=== PATIENT | female | born 1940 | race Caucasian/White ===

== ENCOUNTER → 2023-12-21 08:58 | Outpatient (REF) | payer MEDICARE, OTHER, SELFPAY ==
[2023-12-21 13:06] LABS: ALT (SGPT) 24 U/L (0-35); AST (SGOT) 32 U/L (14-36); Albumin 3.8 g/dl (3.5-5.0); Alkaline Phosphatase 90 U/L (38-126); Blood Urea Nitrogen 21 mg/dl (7-17); Calcium 9.6 mg/dl (8.4-10.2); Carbon Dioxide 29 mmol/L (22-30); Chloride 102 mmol/L (98-107); Glucose 97 mg/dl (70-99); HDL Cholesterol 55 mg/dl; LDL Cholesterol, Calculated 66 mg/dl; Potassium 4.5 mmol/L (3.5-5.1); Sodium 133 mmol/L (135-145); Total Bilirubin 0.7 mg/dl (0.2-1.3); Total Cholesterol 137 mg/dl (50-199); Total Protein 6.5 g/dl (6.3-8.2); Triglyceride 84 mg/dl (10-149); Very Low Density Lipoprotein 16 mg/dl (0-30); eGFR > 60.00
== END ==
LOC: HWLAB 08:58
PROVIDERS: ATTENDING PHYSICIAN Internal Medicine Interventional Cardiology; FAMILY PHYSICIAN Family Medicine
DX: E78.00 Pure hypercholesterolemia, unspecified (principal)
CPT/HCPCS: 36415; 80053; 80061

== ENCOUNTER 2024-05-18 17:02 | Inpatient (IN) | payer MEDICARE, OTHER, SELFPAY ==
[2024-05-18 12:19] VITALS: BP 140/73
--- NOTE | 2024-05-18 13:50 | ED.GENMED ---
History of Present Illness
General
Chief Complaint: Fall
Source: patient
Exam Limitations: none
Time Seen by Provider: 05/18/24 13:41
History of Present Illness
History of Present Illness:
See MDM
Past History
Past History
ED Past Medical History: Asthma
ED Past Surgical History: Orthopedic and Other
Social History
Tobacco: Non-smoker
Alcohol: None
Personal:
Phy Exam
Physical Exam
Physical Exam:
See MDM
Course
Orders/Labs/Results
Orders:
Orders
05/18/24 13:28
CR Chest - 2 Views Urgent
Comment:
Reason For Exam: Cough
CR Hip - RT w/wo Pel 2-3 Vw* Urgent
Comment:
Reason For Exam: fall
Include a pelvis x-ray?: Yes
Femur, Right 2 View [CR Femur - Right Min 2 Vw] Urgent
Comment:
Reason For Exam: fall
05/18/24 13:49
Electrocardiogram (*1) Urgent
Reason for Study: Shortness of Breath
CT Head W/o Iv Contrast Urgent
Comment:
Reason For Exam: fall, R side head injury
EKG- Treatment ONCE
05/18/24 13:55
BNP [NT-proBNP] Urgent
Complete Blood Count/With Diff Urgent
Comprehensive Metabolic Panel Urgent
Troponin I Urgent
05/18/24 15:08
Urinalysis Reflex To Culture Urgent
Date Specimen was Collected: 05/18/24
Time Specimen was Collected: 14:56
05/18/24 15:19
Diltiazem 125 mg/125 ml Nss [Cardizem] 125 mg in 125 ml IV NOW
Initial dose in mg/hr, then titrate:: 5
Titrate to keep:: Heart rate 80-100 bpm
Titrate by mg/hr:: 5 mg/hr
Frequency of titrations (minutes):: 15
Maximum dose in mg/hr:: 15
05/18/24 15:41
[address] Pelvis W/o Iv Contrast Urgent
Comment:
Reason For Exam: R hip pain, possible pelvic fracture
Abnormal Lab Results
05/18/24
13:55
RBC 3.67 L 10^6/uL
(4.20-5.40)
Hgb 11.9 L g/dL
(12.0-16.0)
Hct 33.5 L %
(37.0-47.0)
MCH 32.4 H pg
(27.0-31.0)
MPV 10.8 H fL
(7.4-10.4)
Absolute Lymphs (auto) 0.8 L 10^3/uL
(1.2-3.4)
Neutrophils % 78.7 H %
(42.2-75.2)
Lymphocytes % 11.7 L %
(20.5-51.1)
Sodium 126 L mmol/L
(135-145)
Chloride 91 L mmol/L
(98-107)
Glucose 116 H mg/dl
(70-99)
AST 58 H U/L
(14-36)
05/18/24 13:55
05/18/24 13:55
Vital Signs
Initial and Last Documented VS:
Initial Vital Signs
Temp Pulse Resp BP
99.2 F 89 18 140/73
05/18/24 12:19 05/18/24 12:19 05/18/24 12:19 05/18/24 12:19
Last Documented Vital Signs
Temp Pulse Resp BP Pulse Ox
99.2 F 81 18 140/73 87
05/18/24 12:19 05/18/24 15:00 05/18/24 15:00 05/18/24 12:19 05/18/24 15:00
MDM/Problems Addressed
Differential Diagnosis Includes:
HPI and MDM Narrative:
83-year-old female presenting with generalized weakness, headache, cough and right hip pain. Over the past 3 weeks, patient has been dealing with COVID and a worsening cough. She has been weaker and more bedbound and is becoming deconditioned.
She fell yesterday in the garage and hit the right side of her head and her right hip. Since then, she has been having trouble ambulating due to the pain.
On exam, patient does have rhonchorous breath sounds. There is no obvious trauma on scalp evaluation but will obtain CT given age. Will obtain chest x-ray and hip x-ray and basic blood work.
I did question her edematous legs. Patient states she was recently taken off of her water pills so she could be treated with COVID
Physical exam
General: Weak and fatigued
HEENT: protecting airway
Neck: Nontender and supple
CV: No evidence of cyanosis. Regular rate and rhythm
Resp: No accessory muscle use. Rhonchorous breath sounds throughout
Abd: Non-distended
Extremities: Tenderness to right hip. Distal extremity neurovascular intact. +2 pitting edema bilateral lower extremities
Neuro: alert
Psych: Normal affect
Skin: Intact
Problems Addressed including Acute and Chronic Conditions affecting care:
1. Head injury
Acuity: acute
Prognosis: stable
Details: Given age, will obtain CT head
2. Shortness of breath and cough
Acuity: acute
Prognosis: stable
Details: Likely in the setting of ongoing COVID but will obtain x-ray to rule out pneumonia versus pulmonary edema
3. Hip injury
Acuity: acute
Prognosis: stable
Details: Will obtain x-ray to rule out fracture
Updates
X-ray concerning for possible femoral neck fracture. CT was performed confirming femoral neck fracture. CT head negative. Chest x-ray shows atelectasis and no evidence of pneumonia. Patient found to be mildly hyponatremic
Orthopedics aware and plan for possible OR tomorrow if sodium can be improved
Differential Diagnosis (but not limited to): Intracranial hemorrhage, deconditioning, pneumonia, COVID, hip fracture, pulmonary edema
Testing considered: D-dimer
Drug therapy (if applicable): OTC meds, please see d/c instruction regarding Rx drugs
Amount and/or Complexity of Data Reviewed
Clinical info obtained from: Patient
External data reviewed: N/A
Labs I independently reviewed (but not limited to): Hyponatremia
Radiology: The CT scan was personally and independently reviewed. In addition, official CT report reviewed.
X-ray independently reviewed: Possible femoral neck fracture
Pulse Ox: not hypoxic
EKG independently reviewed: normal sinus rhythm, normal axis, no STEMI
Bridge Teacher: Sinus rhythm
Critical Care: N/A
Risk of Complication:
Social Determinants of health: Good social support
Discussed with other providers: Orthopedics, hospitalist
Escalation of Care includes Admit/Obs: Given the generalized weakness and hip fracture, will admit
Occasional wrong word or 'sound a like' substitutions may have occurred due to the inherent limitations of voice recognition software. Read the chart carefully and recognize, using context, where substitutions have occurred.
*Critical Care Note
Total Time (30-74mins, 75-104mins- exclusive of procedures): Not Applicable
ED Attending Note
-
Portions of this chart may have been created with voice recognition software.� Occasional wrong word or��sound alike� substitutions may have occurred due to the inherent limitations of voice recognition software.
Discharge Plan
Departure
Patient Disposition: Admit
Date of Disposition: 05/18/24
Time of Disposition: 16:11
Admit to: Telemetry
Presentation/result/management discussed w/ accepting MD/DO: Hospitalist
Discharge Problem:
Closed fracture of right hip, Acute hyponatremia
Prescriptions:
No Action
celecoxib 200 MG capsule
200 mg PO DAILY@0500 Qty: 30 0RF
latanoprost 1 DROP drops
1 drp ophthalmic (eye) QPM Qty: 1 0RF
Rx Instructions:
each eye
acetaminophen 325 MG tablet
650 mg PO Q4HWA PRN (Reason: mild pain) Qty: 100 0RF
trazodone 50 MG tablet
50 mg PO HS PRN (Reason: sleep) Qty: 60 0RF
Rx Instructions:
1 tablet at night for sleep. Can take 1 additional tablet before midnight if needed.
aspirin 325 MG tablet
325 mg PO DAILY Qty: 18 0RF
ketotifen fumarate [Zaditor] 1 DROP drops
0 drp ophthalmic (eye) DAILYPRN PRN (Reason: SEASONAL ALLERGIES) 0RF
pantoprazole 40 MG tablet,delayed release (DR/EC)
40 mg PO HS Qty: 30 0RF
aspirin 81 MG tablet,chewable
81 mg PO DAILY 0RF
Rx Instructions:
After finishing the 325 mg tablets.
rosuvastatin 5 MG tablet
5 mg PO MOWEFR@2000 Qty: 30 0RF
calcium carbonate-vitamin D3 [Oyster Shell Calcium-Vit D3] 500 MG tablet
500 mg PO DAILY Qty: 30 0RF
budesonide-formoterol [Symbicort] 1 PUFF HFA aerosol inhaler
1 puff inhalation R BID Qty: 1 0RF
multivitamin with folic acid [Tab-A-Adri] 1 TABLET tablet
1 tab PO DAILY Qty: 30 0RF
Referrals:
Ascencion Terrazas MD [Family Provider] -
Interventions
Interventions:
*General Assessment Last Done: 05/18/24 12:19
*ED COVID-19 Vaccine History Last Done: 05/18/24 12:19
ED-Musculoskeletal Assessment Last Done: 05/18/24 13:29
ED- Neurological Assessment Last Done: 05/18/24 13:29
ED-Skin Assessment Last Done: 05/18/24 13:29
Discharge Date and Time
Print Language: CITIZEN OF [place]
[2024-05-18 14:10] LABS: % Basophils 0.6 % (0-2); % Eosinophils 0.6 % (0-6); % Immature Granulocytes 0.2 % (0-0.5); % Lymphocytes 11.7 % (20.5-51.1); % Monocytes 8.2 % (1.7-9.3); % Neutrophils 78.7 % (42.2-75.2); Absolute Lymphocytes 0.8 10^3/uL (1.2-3.4); Absolute Monocytes 0.5 10^3/uL (0.1-0.6); Absolute Neutrophils 5.1 10^3/uL (1.4-6.5); Hematocrit 33.5 % (37.0-47.0); Hemoglobin 11.9 g/dL (12.0-16.0); Mean Corp Hgb Conc. 35.5 g/dL (33.0-37.0); Mean Corpuscular Hgb 32.4 pg (27.0-31.0); Mean Corpuscular Volume 91.3 fL (81.0-99.0); Mean Platelet Volume 10.8 fL (7.4-10.4); Nucleated Red Blood Cells % 0 %; Platelet Count 287 10^3/uL (130-400); Red Blood Cell Count 3.67 10^6/uL (4.20-5.40); Red Cell Dist. Width 12.7 % (11.5-14.5); White Blood Cell Count 6.5 10^3/uL (4.8-10.8)
[2024-05-18 14:22] LABS: ALT (SGPT) 30 U/L (0-35); AST (SGOT) 58 U/L (14-36); Albumin 3.8 g/dl (3.5-5.0); Alkaline Phosphatase 80 U/L (38-126); Blood Urea Nitrogen 12 mg/dl (7-17); Carbon Dioxide 28 mmol/L (22-30); Chloride 91 mmol/L (98-107); Glucose 116 mg/dl (70-99); Potassium 3.7 mmol/L (3.5-5.1); Sodium 126 mmol/L (135-145); Total Bilirubin 0.9 mg/dl (0.2-1.3); Total Protein 6.6 g/dl (6.3-8.2); eGFR > 60.00
[2024-05-18 14:33] LABS: NT-proBNP 814 pg/ml; Troponin I 0.024 ng/ml
[2024-05-18 15:24] LABS: Urine Albumin Negative (Neg - Trace); Urine Bilirubin Negative (Negative); Urine Character Clear (Clear); Urine Color Yellow; Urine Glucose Negative (Negative); Urine Ketone Negative (Negative); Urine Leukocyte Negative (Negative); Urine Nitrite Negative (Negative); Urine Occult Blood Negative (Negative); Urine Urobilinogen Negative (Neg - 1+)
--- NOTE | 2024-05-18 16:27 | HPS.HSE ---
Family Physician
-
Family Physician: Ascencion Terrazas
Chief Complaint
-
Right hip pain
History of Present Illness
83 years old female presented after a fall at home. She did not have head injury. She was able to ambulate but with discomfort in right hip. She was brought into the emergency room and imaging studies showed right femoral neck fracture. Patient
did not have loss of consciousness.
Patient reported history of decreased oral intake and weakness following recent episode of COVID infection. She takes hydrochlorothiazide daily. She was found to have sodium 126 upon admission.
Medical History
Past Medical History
Past Medical History: Reports Other (Hypertension, glucoma, spinal stenosis, hyperlipidemia, osteoarthritis, mitral valve prolapse, GERD, venous insufficiency, urinary incontinence, asthma.)
Past Surgical History: Reports Other (No recent major surgery)
Social History
Tobacco: Non-smoker
Alcohol: None
Drug: None
Personal:
Living: With Family
Employment: Retired
Family History
Family History: CAD, Diabetes and Hypertension
Allergies / Home Medications
Allergies reflects when Allergies were last updated in [employer].
Home Medications with original date entered in [employer]
Allergy/Medication List:
Allergies
Allergy/AdvReac Type Severity Reaction Status Date / Time
Penicillins Allergy Unknown Verified 05/18/24 12:23
Home Medications
acetaminophen 325 mg tablet 650 mg (2 x 325 mg) PO Q4HWA PRN mild pain #100 tabs 03/12/20
aspirin 325 mg tablet 325 mg PO DAILY #18 tabs 03/12/20
aspirin 81 mg chewable tablet 81 mg PO DAILY 03/12/20
budesonide-formoterol HFA 160 mcg-4.5 mcg/actuation aerosol inhaler (Symbicort) 1 puff inhalation R BID ##1 03/12/20
calcium carbonate 500 mg-vitamin D3 5 mcg (200 unit) tablet (Oyster Shell Calcium-Vitamin D3) 500 mg PO DAILY #30 tabs 03/12/20
celecoxib 200 mg capsule 200 mg PO DAILY@0500 #30 caps 03/12/20
ketotifen fumarate 0.025 % (0.035 %) eye drops (Zaditor) 0 drp ophthalmic (eye) DAILYPRN PRN SEASONAL ALLERGIES 03/12/20
latanoprost 0.005 % eye drops 1 drp ophthalmic (eye) QPM ##1 03/12/20
multivitamin with folic acid 400 mcg tablet (Tab-A-Adri) 1 tab PO DAILY #30 tabs 03/12/20
pantoprazole 40 mg tablet,delayed release 40 mg PO HS #30 tabs 03/12/20
rosuvastatin 5 mg tablet 5 mg PO MOWEFR@2000 #30 tabs 03/12/20
trazodone 50 mg tablet 50 mg PO HS PRN sleep #60 tabs 03/12/20
Review of Systems
-
History Source: Patient
A 12 point ROS was completed and negative except as noted: Yes
Constitutional: Denies Fever or Chills
EENT: Denies Sore Throat or Runny Nose
Respiratory: Reports Cough
Cardiac: Denies Chest Pain
Abdomen/GI: Denies Abdominal Pain
: Reports Incontinence
Musculoskeletal: Reports Joint Pain (Right hip)
Skin: Denies Rash
Neurological: Denies Numbness
Hematologic/Lymphatic: Denies Bruising
Psych: Denies Panic Disorder
Physical Exam
Vital Signs
Vital Signs
Temp Pulse Resp BP Pulse Ox
98.2 F 83 17 140/73 95
05/18/24 16:13 05/18/24 16:00 05/18/24 16:00 05/18/24 12:19 05/18/24 16:13
Physical Exam
General: No Apparent Distress and Comfortable
HEENT: Atraumatic
Respiratory: Rales; No Wheezes
Cardiac: S1/S2, Tachycardia, Peripheral Edema and JVD
GI: Soft, Non Tender and Non Distended
Rectal: No Maroon Stools
Genito-urinary: No costovertebral tender
Musculoskeletal: No Cyanosis, Edema, Left Lower Extremity and Edema, Right Lower Extremity
Skin: No Jaundice
Neuro: AO x 3; No Slurred Speech, Facial Droop or Tremors
Psych: Calm and Intact Judgment/Insight
Laboratory Results
-
05/18/24 13:55
05/18/24 13:55
Laboratory Results
Total Bilirubin 0.9 mg/dl (0.2-1.3) 05/18/24 13:55
AST 58 U/L (14-36) H 05/18/24 13:55
ALT 30 U/L (0-35) 05/18/24 13:55
Alkaline Phosphatase 80 U/L (38-126) 05/18/24 13:55
Troponin I Cancelled 05/18/24 15:19
Impression/Plan
-
83 years old female presented with right femoral neck fracture
#Right femoral neck fracture secondary to mechanical fall
No documented history of osteopenia or osteoporosis
No head trauma. CT head no acute abnormality
Admit the patient to the hospital
Start the patient on pain control with Tylenol
Reviewed imaging studies
Plan for hip surgery
Appreciate orthopedic help
# Hyponatremia
Patient has history of low sodium in the past.
She is on hydrochlorothiazide
History of decreased oral intake recent
Will check serum and urine osmolality. Previous osmolarity testing showed low serum and urine osmolality.
Check urine sodium
On examination, examination consistent with volume overload with bilateral leg edema, elevated proBNP and JVD
Will follow the result.
Will give 1 dose of IV Lasix
Recommend to hold hydrochlorothiazide for now
No confusion
# History of cough, postviral syndrome
History of mild intermittent asthma
Chest radiography showed right midlung atelectasis which was seen in November 2023
No fever or chills
History of mildly productive sputum. No wheezes on exam.
Recently given Pulmicort by her primary lighting designer Dr. Mina
Continue with cough medicine, will benefit from diuretic therapy
# Preop evaluation
Patient does not have anginal systems
She seems to have some pulmonary edema following viral infection
Will give diuretic therapy
EKG normal sinus rhythm
Negative troponin
Sodium will be corrected
No prohibitive factors for surgery/hip fracture repair
#Primary hypertension, will continue with losartan
Will hold amlodipine and give diuretic therapy
Will adjust medications according to blood pressure tolerance and clinical examination
# GERD, continue with PPI
# DVT prophylaxis Thromboguards
Total time spent to see the patient, examine the patient, review data and lab results, and discuss the treatment plan with patient, ER doctor, family and nurse around 75 minutes
[2024-05-18 16:42] VITALS: BP 157/78
[2024-05-18 17:00] VITALS: BP 150/70
[2024-05-18] MEDS: LASIX 40 MG IV (17:31)
[2024-05-18 17:36] LABS: Osmolality Urine 283 mOsm/kg (300-900)
[2024-05-18 17:48] LABS: Urine Sodium 76 mmol/L (30-90)
[2024-05-18 18:00] VITALS: BP 166/84
[2024-05-18 18:58] LABS: Osmolality Serum 269 mOsm/kg (275-300)
[2024-05-18] MEDS: XALATAN OPHTHALMIC SOLUTION 1 DROP BOTH EYES (19:20)
[2024-05-18] MEDS: PROCARDIA XL (EXTENDED RELEASE) 30 MG PO (19:38)
[2024-05-18] MEDS: TYLENOL 1000 MG PO (19:40)
[2024-05-18 21:29] VITALS: BMI 25.9
[2024-05-18 21:34] VITALS: BP 127/57
[2024-05-18] MEDS: SODIUM CHLORIDE 1 GRAM PO (22:47)
[2024-05-18 23:35] VITALS: BP 135/65
[2024-05-19] VITALS (10 sets, daily range): BP systolic 103–146; BP diastolic 45–99; PULSE 92–98; O2SAT 95
[2024-05-19 05:25] LABS: Hematocrit 32.3 % (37.0-47.0); Hemoglobin 11.7 g/dL (12.0-16.0); Mean Corp Hgb Conc. 36.2 g/dL (33.0-37.0); Mean Corpuscular Hgb 32.3 pg (27.0-31.0); Mean Corpuscular Volume 89.2 fL (81.0-99.0); Platelet Count 284 10^3/uL (130-400); Red Blood Cell Count 3.62 10^6/uL (4.20-5.40)
[2024-05-19 05:55] LABS: Blood Urea Nitrogen 11 mg/dl (7-17); Calcium 9.8 mg/dl (8.4-10.2); Carbon Dioxide 30 mmol/L (22-30); Chloride 91 mmol/L (98-107); Estimated Creatinine Clearance 68 ml/min; Glucose 103 mg/dl (70-99); Potassium 3.3 mmol/L (3.5-5.1); Sodium 129 mmol/L (135-145); eGFR > 60.00
[2024-05-19] MEDS: KCL 40 MEQ PO (07:20)
[2024-05-19] MEDS: COZAAR 25 MG PO (07:20)
[2024-05-19] MEDS: PROTONIX 40 MG PO (07:20)
[2024-05-19] MEDS: PROCARDIA XL (EXTENDED RELEASE) 30 MG PO (07:20)
--- NOTE | 2024-05-19 07:44 | W.PN.HOSP.TC ---
Today's Communication/Plan
-
.
Assessment / Plan
Assessment / Plan
Physical Exam
General: No Apparent Distress and Comfortable
HEENT: Atraumatic
Respiratory: Rales; No Wheezes
Cardiac: S1/S2, regular rate, no Peripheral Edema.
GI: Soft, Non Tender and Non Distended
Rectal: No Maroon Stools
Genito-urinary: No costovertebral tender
Musculoskeletal: No Cyanosis, Edema, Left Lower Extremity and Edema, Right Lower Extremity
Skin: No Jaundice
Neuro: AO x 3; No Slurred Speech, Facial Droop or Tremors
Psych: Calm and Intact Judgment/Insight
83 years old female presented with right femoral neck fracture
#Right femoral neck fracture secondary to mechanical fall
No documented history of osteopenia or osteoporosis
No head trauma. CT head no acute abnormality
c/w pain control with Tylenol
Reviewed imaging studies
Plan for hip surgery today. Now NPO
Appreciate orthopedic help
# Hyponatremia likely exacerbated by HCTZ use, can not rule out element of ADH excess
Patient has history of low sodium in the past.
Low serum and urine osmolality. Urine Na 76
Previous osmolarity testing showed low serum and urine osmolality.
s/p 1 dose of IV Lasix
Recommend to hold hydrochlorothiazide for now, Would dc upon discharge.
No confusion
# Acute on chronic HFpEF
Might be triggered by recent COVID infection
c/w Lasix. Today she is NPO and already had Lasix over night. Will start Lasix post surgery
We dont have recent Echo. Her ink blender Dr Talavera, can reach out on Monday.
# History of cough, postviral syndrome
History of mild intermittent asthma
Chest radiography showed right midlung atelectasis which was seen in November 2023
No fever or chills
History of mildly productive sputum. No wheezes on exam.
Recently given Pulmicort by her primary stock preparation operator Dr. Mina
Continue with cough medicine, will benefit from continued low dose diuretic therapy
# Preop evaluation
Patient does not have anginal systems
No hypoxia.
EKG normal sinus rhythm
Negative troponin
Sodium is improving. K is replaced
No prohibitive factors for surgery/hip fracture repair
# Hypokalemia
replace
recheck in am
#Primary hypertension, was uncontrolled.
No chest pain or headache
Continue with losartan
Stopped amlodipine due to poorly controlled BP, started on Nifedipine.
Continue to adjust medications according to blood pressure tolerance and clinical examination
# GERD, continue with PPI
# DVT prophylaxis Thromboguards
Total time spent to see the patient, examine the patient, review data and lab results, and discuss the treatment plan with patient, family and nurse around 55 minutes
Anticipated Discharge: > 48 hours
Subjective/Interval History
-
Date of Service: May 19, 2024
No chest pain
No sob
Objective Data
-
Labs:
Laboratory Results
05/19/24
05:00
WBC 5.0
Hgb 11.7 L
Hct 32.3 L
Plt Count 284
Sodium 129 L
Potassium 3.3 L
Chloride 91 L
Carbon Dioxide 30
BUN 11
Creatinine 0.6
Glucose 103 H
Calcium 9.8
Vital Signs:
Vital Signs
Temp Pulse Resp BP Pulse Ox
98.4 F 83 18 135/65 94
05/18/24 23:35 05/18/24 23:35 05/18/24 23:35 05/18/24 23:35 05/18/24 23:35
I&O
05/18/24 05/19/24 05/20/24
06:59 06:59 06:59
Intake Total 360 / 360
Output Total 1400 / 1400
Balance -1040 / -1040
[2024-05-19] MEDS: PULMICORT 0.5 MG INH ×2 (08:35→19:19)
[2024-05-19] MEDS: SODIUM CHLORIDE 1 GRAM PO ×2 (08:37→20:54)
--- NOTE | 2024-05-19 08:50 | CON.ORTHO ---
Consultation
-
Date/Time Consultation Requested: 05/18/2024
Date/Time Consultation Performed: 05/19/2024
Requesting Provider: Dr. Ferreira
Performing Provider: Ely Liu PA-C, for Dr. Whitley
Reason for Consultation: Right hip femoral neck fracture
Consultation - Orthopedics
History
HPI: This is an 83 year old female who sustained a fall on Monday night, landing on her right hip. She reports she had gone into her garage to grab a box of tissues and fell backwards attempting to go up the steps. She hit her head on the car on
the way down and landed on the right hip. She had pain immediately, but was able to maneuver around her house with assistance. She ended up presenting to yesterday afternoon, where x-rays and CT scan demonstrated a right femoral neck fracture.
She was admitted to the Hospitalists service where she was found to be hyponatremic. She has been recovering from a recent covid infection, and reports a persistent, hacking cough and headache. This has led to some weakness and deconditioning.
Our orthopedic group was consulted in to discuss definitive management of her right hip fracture. Of note, she did previously have a left ELO after sustaining a fall/fracture in 2019. This was performed under the direction of Dr. Whitley. She did
initially have some difficulties weight bearing following the surgery, but otherwise denies any post operative complications.
Past medical history: Significant for HTN, glaucoma, spinal stenosis, hyperlipidemia, DJD, MVP, GERD, venous insufficiency, asthma, recent COVID infection.
Past surgical history: Left ELO 2019.
Social history: Denies tobacco use. Lives at home with .
Family history: Non-contributory.
Review of systems: All systems reviewed and negative except for those mentioned in HPI.
Allergies / Home Medications
Allergy/AdvReac Type Severity Reaction Status Date / Time
Penicillins Allergy Unknown Verified 05/18/24 12:23
�Medication �Instructions �Recorded
acetaminophen 325 mg tablet 650 mg (2 x 325 mg) PO Q4HWA PRN 03/12/20
mild pain #100 tabs
ketotifen fumarate 0.025 % (0.035 0 drp ophthalmic (eye) DAILYPRN 03/12/20
%) eye drops (Zaditor) PRN SEASONAL ALLERGIES
trazodone 50 mg tablet 50 mg PO HS PRN sleep #60 tabs 03/12/20
aspirin 325 mg tablet 325 mg PO DAILY Blood Clot 05/19/24
Prevention/Tx
aspirin 81 mg chewable tablet 81 mg PO DAILY Blood Clot 05/19/24
Prevention/Tx
budesonide-formoterol HFA 160 1 puff inhalation R BID 05/19/24
mcg-4.5 mcg/actuation aerosol Lung/Breathing Issues
inhaler (Symbicort)
calcium carbonate 500 mg-vitamin 500 mg PO DAILY Supplement 05/19/24
D3 5 mcg (200 unit) tablet (Oyster
Shell Calcium-Vitamin D3)
celecoxib 200 mg capsule 200 mg PO DAILY@0500 INFLAMMATION 05/19/24
latanoprost 0.005 % eye drops 1 drp ophthalmic (eye) QPM Eye 05/19/24
Condition
multivitamin with folic acid 400 1 tab PO DAILY Supplement 05/19/24
mcg tablet (Tab-A-Adri)
pantoprazole 40 mg tablet,delayed 40 mg PO HS GERD 05/19/24
release
rosuvastatin 5 mg tablet 5 mg PO MOWEFR@2000 High 05/19/24
Cholesterol
Vital Signs / Lab Results
Temp Pulse Resp BP Pulse Ox
98.7 F 85 18 120/65 92
05/19/24 07:58 05/19/24 07:58 05/19/24 07:58 05/19/24 07:58 05/19/24 07:58
05/19/24 05:00
05/19/24 05:00
Physical Examination:
General: WD/WN female in no acute distress at rest. AAO x 4.
HEENT: AT/NC, neck supple.
Heart: RRR.
Lungs: Productive cough present. No audible wheezing, breathing normally on room air.
Right hip: Mild swelling. Diffuse TTP. ROM not tested due to known fracture. Calf soft and nontender to palpation. N/v intact distally.
Radiographic studies:
X-rays of the right hip from 05/18/2024 shows evidence an impacted subcapital femoral neck fracture.
CT scan of pelvis from 05/18/2024 shows nondisplaced femoral neck fracture.
CT of head from shows no acute bleed.
Assessment / Plan
Assessment: Right femoral neck fracture.
Plan: Unfortunately, Mrs. Johnson sustained a right hip femoral neck fracture during her fall on Monday night. A lengthy discussion was had about both nonsurgical and surgical interventions. At this time, our recommendation is to proceed with a
right total hip arthroplasty under the direction of Dr. Whitley later this afternoon. The procedure was discussed in detail, along with the associated risks, benefits, and recovery process. Surgical and blood transfusion consents signed and placed
at OR medical front desk specialist. IV antibiotics and irrigation quality liaison to OR. Type and screen has been performed and she is currently NPO. All questions were answered and patient was in agreement with treatment recommendations.
[2024-05-19 10:11] LABS: INR 1.15; PT 14.5 Sec (11.4-14.6)
--- NOTE | 2024-05-19 12:00 | CM ---
Initial assessment completed with pt with her and son at bedside.
Pt is an 83yr old female admitted after a fall at home that resulted in a Right Hip fx. Planned for right total hip arthroplasty today.
At baseline, pt lives with her in a 1 level home that has 1 step to enter.
Pt is independent at baseline, driving.
Pt has a Rollator, cane, elevated toilet seat, shower bars and seat, and a hip kit from a Left hip fx in 2019.
Most meals are microwave or prepared, and they have a cleaning service. Otherwise, pt is active and does go out into the community.
Per son, they are working on hired caregivers to aide with and discharge needs of pt once she is home.
Post hip fx in 2019, pt went to [facility], and then later discharged to home with [facility].
PCP; Ascencion Terrazas
Pharm; [facility]
PLAN; [facility]
--- NOTE | 2024-05-19 12:49 | PTCARENOTE ---
Pt going to be transferred to [address] [place] [address] postoperatively today. Report given to RN on 2 south.
--- NOTE | 2024-05-19 14:52 | PTCARENOTE ---
Patient received from PACU in bed; Patient on 2L nasal cannula; Surgical site assessed with SOCIAL MEDIA EXECUTIVE, right hip aquacell clean, dry, and intact; Scattered ecchymosis around aquacell dressing, soft to palpation; Patient awake and alert to self, place,
and time; Patient states pain is a mild burning sensation but tolerable; Patient denies nausea/vomiting; Patient has positive sensation to bilateral lower extremities; Bilateral pedal pulses +2 to palpation; Son at bedside; Call prabhakar within reach;
Bed in lowest position, wheels locked; Assessment ongoing
--- NOTE | 2024-05-19 15:48 | W.PN.UPDATE ---
Addendum entered and electronically signed by Willie Johnson MD 05/22/24 16:37:
This note was incorrectly placed on this chart by mistake and was meant for another chart. Please disregard this note with respect to this patient. Thank you.
Original Note:
Update Note
Progress Note Update
In reference to the extensive debridement performed at the time of surgery, the debridement was excisional removing inflamed synovial tissue and slough and was performed using a 10 blade and a 15 blade knife. The debridement included skin
subcutaneous tissue, scar tissue down to bone. The area was approximately 10 inches by 7 inches and 3-4 inches deep,.
[2024-05-19] MEDS: TYLENOL 1000 MG PO (17:06)
[2024-05-19] MEDS: XALATAN OPHTHALMIC SOLUTION 1 DROP BOTH EYES (17:06)
[2024-05-19] MEDS: ASPIRIN 325 MG PO (17:06)
[2024-05-19] MEDS: BACTROBAN 2% OINTMENT 1 APPLIC NASAL (20:54)
[2024-05-19] MEDS: ANCEF 5 IV (20:54)
[2024-05-19] MEDS: FLUSH (NSS) 1 FLUSH IV (20:56)
--- NOTE | 2024-05-19 22:25 | PTCARENOTE ---
Pt. states light sensitivity particularly with screens, TV and phone, since sustaining head injury on 05/17, and occasional headaches. Neurovascular checks WNL. Head CT unremarkable on 05/18. Spoke with house NIGHT TIME NANNY about pt. concerns for possible neuro
consult.
[2024-05-20] VITALS (7 sets, daily range): BP systolic 113–139; BP diastolic 58–74; PULSE 87–90; O2SAT 94–96
[2024-05-20] MEDS: TYLENOL 1000 MG PO ×2 (00:06→22:05)
[2024-05-20] MEDS: ANCEF 5 IV (04:22)
[2024-05-20] MEDS: FLUSH (NSS) 2 FLUSH IV (04:22)
[2024-05-20] MEDS: PULMICORT 0.5 MG INH ×2 (07:44→20:19)
[2024-05-20] MEDS: BACTROBAN 2% OINTMENT 1 APPLIC NASAL (08:06)
[2024-05-20] MEDS: ASPIRIN 325 MG PO (08:07)
[2024-05-20] MEDS: PROTONIX 40 MG PO (08:07)
[2024-05-20] MEDS: SODIUM CHLORIDE 1 GRAM PO (08:07)
[2024-05-20] MEDS: COZAAR 25 MG PO (08:15)
[2024-05-20] MEDS: PROCARDIA XL (EXTENDED RELEASE) PO (08:15)
[2024-05-20] MEDS: COLACE 100 MG PO ×2 (08:25→21:55)
[2024-05-20 08:36] LABS: Hematocrit 34.4 % (37.0-47.0); Hemoglobin 12.1 g/dL (12.0-16.0); Mean Corp Hgb Conc. 35.2 g/dL (33.0-37.0); Mean Corpuscular Hgb 32.2 pg (27.0-31.0); Mean Corpuscular Volume 91.5 fL (81.0-99.0); Mean Platelet Volume 11.1 fL (7.4-10.4); Platelet Count 309 10^3/uL (130-400); Red Blood Cell Count 3.76 10^6/uL (4.20-5.40); Red Cell Dist. Width 13.2 % (11.5-14.5)
[2024-05-20 09:23] LABS: Blood Urea Nitrogen 18 mg/dl (7-17); Calcium 9.6 mg/dl (8.4-10.2); Carbon Dioxide 26 mmol/L (22-30); Chloride 93 mmol/L (98-107); Estimated Creatinine Clearance 51 ml/min; Glucose 192 mg/dl (70-99); Sodium 130 mmol/L (135-145); eGFR > 60.00
--- NOTE | 2024-05-20 09:46 | W.PN.ORTHO ---
Today's Communication / Plan
-
Appreciate the primary team in her management, continue Tx
Dispo per CM (?Lasha)
Continue WBAT RLE on walker/assistance
PT/OT, THPs x 10-12 weeks
ASA 325mg daily for DVT ppx
Avoid narcs please, if possible. Ice to right hip
Dressing to remain x 10-14 days (Monocryl closure)
Outpatient Ortho follow-up 4 weeks for clinical check
Assessment
.
Distal Motor Intact: Yes
Dressing:
Clean, dry and intact. Aquacel in place right thigh
Assessment:
POD#1 Right ELO (for fracture)
Overall doing/feeling well this AM
Calf soft, nontender
Plan
.
Surgery / Date: Right ELO May 29 ([facility](
DVT Prophylaxis: Aspirin
Activity:
Out of bed. WBAT RLE on walker/assistance
PT/OT, THPs x 10-12 weeks
Discharge Plan: Other
Discharge Information:
Appreciate CM with disposition ([facility]?)
Subjective
.
.:
Patient seated at the bedside. very comfortable. No right hip pain
Vital Signs and Labs
.
Vital Signs and Labs:
Lab Results
05/20/24 08:09
05/20/24 08:09
Temp Pulse Resp BP Pulse Ox
97.9 F 83 15 130/68 94
05/20/24 07:12 05/20/24 07:45 05/20/24 07:45 05/20/24 08:15 05/20/24 08:00
PT 14.5 Sec (11.4-14.6) 05/19/24 09:51
INR 1.15 05/19/24 09:51
--- NOTE | 2024-05-20 11:44 | W.PN.HOSP.TC ---
Today's Communication/Plan
-
ECHO pending
dc nifedipine
pulm
pt/ot
ARB on dc
Assessment / Plan
Assessment / Plan
Physical Exam
General: No Apparent Distress and Comfortable
HEENT: Atraumatic
Respiratory: Rales; No Wheezes
Cardiac: S1/S2, regular rate, no Peripheral Edema.
GI: Soft, Non Tender and Non Distended
Rectal: No Maroon Stools
Genito-urinary: No costovertebral tender
Musculoskeletal: No Cyanosis, Edema, Left Lower Extremity and Edema, Right Lower Extremity
Skin: No Jaundice
Neuro: AO x 3; No Slurred Speech, Facial Droop or Tremors
Psych: Calm and Intact Judgment/Insight
83 years old female presented with right femoral neck fracture
#Right femoral neck fracture secondary to mechanical fall
No documented history of osteopenia or osteoporosis
CT head no acute abnormality
c/w pain control with Tylenol and narcotics if truly in pain
Reviewed imaging studies
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
Started on aspirin for DVT prophylaxis
PT/OT
Appreciate orthopedic help
# Hyponatremia likely exacerbated by HCTZ use, can not rule out element of ADH excess
Patient has history of low sodium in the past.
Low serum and urine osmolality. Urine Na 76
Previous osmolarity testing showed low serum and urine osmolality.
s/p 1 dose of IV Lasix
Recommend to hold hydrochlorothiazide for now, Would dc upon discharge.
No confusion
Sodium stabilized at 130
#Intermittent severe anxiety
Does not want SSRI/SNRI. Plus with hyponatremia
If in severe panic attack can consider low dose ativan/xanax
# chronic HFpEF
Chest x-ray with no pulmonary edema.
No local extremity edema. Denies chest pain or shortness of breath
Echo earlier today
Can hold off on further Lasix. Not entirely convinced with patient in acute heart failure.
# History of cough, postviral syndrome
History of mild intermittent asthma
Chest radiography showed right midlung atelectasis which was seen in November 2023
No fever or chills
History of mildly productive sputum. No wheezes on exam.
Recently given Pulmicort by her primary case finisher Dr. Mina
Will ask pulmonary for input
# Hypokalemia
Replete and monitor
#Primary hypertension, was uncontrolled. ? Worsened due to severe anxiety
No chest pain or headache
Continue with losartan and can uptitrate dose if needed.
Blood pressure 118/80
Continue to adjust medications according to blood pressure tolerance and clinical examination
# GERD, continue with PPI
# DVT prophylaxis asa
PT/OT-Acute rehab on dc
Anticipated Discharge: Within 24 hours
Subjective/Interval History
-
Date of Service: May 20, 2024
denies hip pain
states of cough
states called her pulmonary office for severe cough
states of severe anxiety and worried about her spouse at home
Objective Data
-
Labs:
Laboratory Results
05/20/24
08:09
WBC 8.0
Hgb 12.1
Hct 34.4 L
Plt Count 309
Sodium 130 L
Potassium 4.0
Chloride 93 L
Carbon Dioxide 26
BUN 18 H
Creatinine 0.8
Glucose 192 H
Calcium 9.6
Vital Signs:
Vital Signs
Temp Pulse Resp BP Pulse Ox
98.1 F 90 17 118/68 94
05/20/24 10:36 05/20/24 10:36 05/20/24 10:36 05/20/24 10:36 05/20/24 10:36
I&O
05/19/24 05/20/24 05/21/24
06:59 06:59 06:59
Intake Total 360 / 360 580 / 580
Output Total 1400 / 1400 575 / 575
Balance -1040 / -1040
--- NOTE | 2024-05-20 13:28 | CM ---
Patient with Dx Right femoral neck fracture secondary to mechanical fall who is s/p right hip total arthroplasty. WBAT RLE. PT & OT recommend acute rehab.
Spoke with patient who agrees to [facility] tomorrow. Patient says her son Willie Johnson is aware of the plan- CM sent TT message to him confirming d/c plan also.
Spoke with Maria M, [facility]; they are able to accept the patient tomorrow. The for report [phone], fax [phone].
Plan [facility] tomorrow.
--- NOTE | 2024-05-20 16:18 | CON.PUL ---
Consultation
Consultation Request
Date/Time Consultation Requested: 05/20
Date/Time Consultation Performed: 05/20
Reason for Consultation: Bronchitis
Medical History
-
History of Present Illness:
History obtained from the patient, reviewing outpatient records and reviewing the chart. We are asked to see patient for persistent cough. She is an 83-year-old female with history of shortness of breath, mild asthma, chronic recurrent bronchitis
who presents with general malaise, headaches and right hip pain. She apparently was identified with COVID about 3 weeks prior with worsening cough. She fell prior to her admission, hit her head and her right hip. She underwent right hip
arthroplasty for fracture 05/19. We are asked to comment on her persistent cough.
Patient has had persistent cough since her COVID. In the past she has responded to nebulized therapy. She was unable to take her Symbicort due to difficulty taking a deep breath secondary to cough. She was transition to Pulmicort as outpatient.
She started seeing some improvement in her cough. Presently she rates her cough 4/10. Describes occasional issues with dysphagia
.
PMH: Mild asthma with recurrent bronchitis, spinal stenosis, but hypertension, GERD, hypercholesterolemia
Past Medical History
Past Medical History: None (See above)
Past Surgical History: None (See above)
Social History
Tobacco: Non-smoker
Alcohol: None
Drug: None
Living: With Family
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
Family History
Family History: Other (Sister with diabetes, brother with diabetes and kidney disease. 2 children were healthy. Father from emphysema, mother from heart disease)
Allergies / Home Medications
Allergies
Allergy/AdvReac Type Severity Reaction Status Date / Time
Penicillins Allergy Unknown Verified 05/18/24 12:23
Home Medications
�Medication �Instructions �Recorded �Confirmed �Last Taken �Type
aspirin 81 mg chewable tablet 81 mg PO DAILY Blood Clot 05/19/24 05/20/24 Unknown History
Prevention/Tx
budesonide-formoterol HFA 160 1 puff inhalation R BID 05/19/24 05/20/24 Unknown History
mcg-4.5 mcg/actuation aerosol Lung/Breathing Issues
inhaler (Symbicort)
calcium carbonate 500 mg-vitamin 500 mg PO DAILY Supplement 05/19/24 05/20/24 Unknown History
D3 5 mcg (200 unit) tablet (Oyster
Shell Calcium-Vitamin D3)
latanoprost 0.005 % eye drops 1 drp ophthalmic (eye) QPM Eye 05/19/24 05/20/24 Unknown History
Condition
multivitamin with folic acid 400 1 tab PO DAILY Supplement 05/19/24 05/20/24 Unknown History
mcg tablet (Tab-A-Adri)
rosuvastatin 5 mg tablet See Rx Instructions .Route 05/19/24 05/20/24 Unknown History
.COMPLEX High Cholesterol
B-complex with vitamin C 1 tab PO DAILY 05/20/24 05/20/24 Unknown History
amlodipine 5 mg tablet 5 mg PO DAILY 05/20/24 05/20/24 Unknown History
glucosamine 750 [id number] 1 tab PO BID 05/20/24 05/20/24 Unknown History
no.1 625 mg-C 30 [id number]
tablet (Glucosamine-Chondroitin 3X)
hydrochlorothiazide 25 mg tablet 25 mg PO DAILY 05/20/24 05/20/24 Unknown History
losartan 25 mg tablet 25 mg PO DAILY 05/20/24 05/20/24 Unknown History
olopatadine 0.2 % eye drops 1 drp ophthalmic (eye) DAILY PRN 05/20/24 05/20/24 Unknown History
itching
omeprazole 20 mg tablet,delayed 20 mg PO DAILY 05/20/24 05/20/24 Unknown History
release
psyllium seed (sugar) oral powder 1 tbsp PO BID 05/20/24 05/20/24 Unknown History
zinc 50 mg tablet 50 mg PO DAILY 05/20/24 05/20/24 Unknown History
Review of Systems
-
All other systems: Negative unless noted
Vitals / Labs / Diagnostic Testing
Vital Signs
Temp Pulse Resp BP Pulse Ox
98 F 92 19 123/59 94
05/20/24 15:23 05/20/24 15:23 05/20/24 15:23 05/20/24 15:23 05/20/24 15:23
Lab Data
05/20/24 08:09
05/20/24 08:09
Diagnostic Testing:
Physical Exam
-
HEENT: Normocephalic and Anicteric
Cardiovascular: S1/S2, Regular Rhythm, Murmur (n), Rub (n) and Peripheral Edema (n)
Respiratory: Wheeze (n), Rales (n), Rhonchi (few) and Other (Coarse breath sounds)
GI: Soft, Non Distended and Non Tender
Neurology: Awake, Alert and No Motor Deficits (Moves extremities)
Skin: Good Color
General: Comfortable
Assessment
-
83-year-old female with history of asthma, recurrent bronchitis response to nebulized therapy in the past, recent COVID 3 weeks ago with persistent cough since. She then fell, requiring right hip arthroplasty for fracture 05/18. We are asked to
help from a pulmonary standpoint regarding her persistent cough
Subacute, chronic recurrent bronchitis
Worsened after recent Covid illness April 2024
Status post fall, right hip fracture
s/p RtTHA 05/18
Acute hyponatremia
Conditions present prior to admission
Chronic recurrent bronchitis
Mild intermittent asthma
Maintained on Symbicort therapy
GERD
Recent right middle lung atelectasis per chest x-ray
Snoring, suspected sleep apnea
Plan/recommendations
At this time, patient appears to be comfortable
Chest exam with coarse breath sounds
Upon pursuing airway clearance measures, patient with significant rhonchi and better ability to expectorate mucus
Recent bout of Covid noted
Suspect chest x-ray findings are post COVID
Patient is not requiring oxygen
Moving forward
Plan to ramp up airway clearance measures
Incentive spirometry, add Acapella device. This was reviewed with her. This should continue while in [facility]
Would like to continue Symbicort 1 puff twice a day 80/4.5 and budesonide nebulizer twice a day
She will do both of this until cough resolves and then get back to Symbicort alone
Based on her response to the above she may require addition of 3% saline but for now we will hold off
She is well-known to myself and will plan to follow-up with me as previously discussed
Would like to avoid systemic prednisone at this time given recent hip repair.
Reviewed with patient at length.
Will follow
[2024-05-20] MEDS: XALATAN OPHTHALMIC SOLUTION 1 DROP BOTH EYES (17:14)
[2024-05-20] MEDS: SYMBICORT 80/4.5 MCG INHALER 1 PUFF INH (20:19)
[2024-05-20] MEDS: XANAX 0.25 MG PO (22:05)
[2024-05-21] VITALS (10 sets, daily range): BP systolic 101–141; BP diastolic 50–81
[2024-05-21] MEDS: ROXICODONE 2.5 MG PO (04:50)
--- NOTE | 2024-05-21 05:37 | W.PN.ORTHO ---
Today's Communication / Plan
-
83-year-old female POD2 Right ELO (for fracture)
- Appreciate the primary team in her management, continue Tx
- Dispo per CM (Lasha)
- Continue WBAT RLE on walker/assistance
- PT/OT, THPs x 10-12 weeks
- ASA 325mg daily for DVT ppx
- Pain control per primary team. Avoid narcotic pain medication if possible. Ice to right hip
- Dressing to remain x 10-14 days (Monocryl closure)
- Outpatient Ortho follow-up 4 weeks for clinical check
Assessment
.
Distal Motor Intact: Yes
Dressing:
Clean, dry and intact. Aquacel in place right thigh.
Assessment:
POD#2 Right ELO (for fracture)
Plan
.
Surgery / Date: Right ELO May 29 ([facility])
DVT Prophylaxis: Aspirin
Activity:
Out of bed.
PT/OT
Out of bed. WBAT RLE on walker/assistance
PT/OT, THPs x 10-12 weeks
Discharge Information:
[facility]
Subjective
.
.:
Patient resting in bed this morning on encounter. She endorses discomfort to her right hip. She reports that she was working with physical therapy yesterday and is unsure whether she may have overdone it.
Vital Signs and Labs
.
Vital Signs and Labs:
Lab Results
05/20/24 08:09
05/20/24 08:09
Temp Pulse Resp BP Pulse Ox
98.5 F 87 18 113/58 99
05/20/24 23:44 05/20/24 23:44 05/20/24 23:44 05/20/24 23:44 05/20/24 23:44
PT 14.5 Sec (11.4-14.6) 05/19/24 09:51
INR 1.15 05/19/24 09:51
[2024-05-21] MEDS: COLACE 100 MG PO ×2 (08:04→19:50)
[2024-05-21] MEDS: ASPIRIN 325 MG PO (08:04)
[2024-05-21] MEDS: PROTONIX 40 MG PO (08:04)
[2024-05-21] MEDS: COZAAR 25 MG PO (08:04)
--- NOTE | 2024-05-21 08:09 | W.PN.PUL3 ---
Today's Communication / Plan
-
Continue Symbicort 1 puff twice a day
Continue budesonide via nebulizer twice a day
Continue with Acapella, incentive spirometry throughout the day
Encourage airway clearance
Pain control per primary service
Follow-up information left in chart
We will sign off. Please call with questions
Assessment
-
83-year-old female with history of asthma, recurrent bronchitis response to nebulized therapy in the past, recent COVID 3 weeks ago with persistent cough since. She then fell, requiring right hip arthroplasty for fracture 05/18. We are asked to
help from a pulmonary standpoint regarding her persistent cough
Subacute, chronic recurrent bronchitis
Worsened after recent Covid illness April 2024
Status post fall, right hip fracture
s/p RtTHA 05/18
Acute hyponatremia
Conditions present prior to admission
Chronic recurrent bronchitis
Mild intermittent asthma
Maintained on Symbicort therapy
GERD
Recent right middle lung atelectasis per chest x-ray
Snoring, suspected sleep apnea
Plan/recommendations
At this time, patient appears to be comfortable
Chest exam with coarse breath sounds
Upon pursuing airway clearance measures, patient with significant rhonchi and better ability to expectorate mucus
Recent bout of Covid noted
Suspect chest x-ray findings are post COVID
Patient is not requiring oxygen
With Acapella, incentive spirometry, Symbicort and Pulmicort, she is starting to mobilize secretions
This should continue at [facility]
Would like to continue Symbicort 1 puff twice a day 80/4.5 and budesonide nebulizer twice a day
She will do both of this until cough resolves and then get back to Symbicort alone
No indication for mucolytic therapy at this time
She is well-known to myself and will plan to follow-up with me as previously discussed
Would like to avoid systemic prednisone at this time given recent hip repair.
Reviewed with patient at length.
Recommend follow-up in our office in the next 1 to 2 months
Disposition efforts noted. We will sign off. Please call with questions
Subjective Data
-
Date of Service:
Date of Service: May 21, 2024
Subjective:
Patient complaining of hip discomfort. Otherwise doing well from a pulmonary standpoint. Starting to mobilize secretions. Denies hemoptysis, chest pain, shortness of breath
Objective Data
Data Reviewed
Vital Signs / I&O / Oxygen:
Vital Signs
Temp Pulse Resp BP Pulse Ox
98.1 F 88 18 134/62 92
05/21/24 07:20 05/21/24 07:20 05/21/24 07:20 05/21/24 07:20 05/21/24 07:20
Intake and Output
05/20/24 05/21/24 05/22/24
06:59 06:59 06:59
Intake Total 580 / 580 1380 / 1380
Output Total 575 / 575
Balance 5 / 5 1380 / 1380
SaO2 92
Nasal Cannula flow liters per 2
minute
Physical Exam
General: Comfortable
HEENT: Normocephalic and Anicteric
Cardiovascular: S1-S2, Regular Rhythm, Murmur (n) and Rub (n)
Respiratory: Wheeze (n), Crackles (n), Rhonchi (few) and Non-Labored Respirations
GI: Soft, Non Distended and Non Tender
Neurology: Awake, Alert and No Motor Deficits
Skin: Cyanosis (n), Jaundice (n) and Rash (n)
Labs/Micro/Reports
Lab Data
05/20/24 08:09
05/20/24 08:09
[2024-05-21] MEDS: TYLENOL 1000 MG PO ×2 (08:14→19:52)
--- NOTE | 2024-05-21 08:18 | W.PN.UPDATE ---
Update Note
Progress Note Update
Patient with a little difficulty overnight managing pain. Xanax and low dose Oxycodone provided. Having expected right thigh pain with minimal ranging hip pain. LLE equal. Dressing CDI. DNVI RLE. Was told she fell back into bed this morning and felt
something around her knee. Having some medial knee pain. Difficultly with active knee extension and maintaining against gravity, but clinically not overly concerned for extensor mechanism. Will request right knee and femur films. Would ask that PT
sees her this AM, as the plan (hopefully today), [facility].
[2024-05-21] MEDS: PULMICORT 0.5 MG INH ×2 (08:35→20:51)
[2024-05-21] MEDS: SYMBICORT 80/4.5 MCG INHALER 1 PUFF INH ×2 (08:35→20:51)
--- NOTE | 2024-05-21 11:33 | W.PN.HOSP.TC ---
Today's Communication/Plan
-
Await Ortho input for R pelvis xray
may require repeat trip to OR
DC on hold
Assessment / Plan
Assessment / Plan
Physical Exam
General: No Apparent Distress and Comfortable
HEENT: Atraumatic
Respiratory: Rales; No Wheezes
Cardiac: S1/S2, regular rate, no Peripheral Edema.
GI: Soft, Non Tender and Non Distended
Rectal: No Maroon Stools
Genito-urinary: No costovertebral tender
Musculoskeletal: No Cyanosis, Edema, Left Lower Extremity and Edema, Right Lower Extremity
Skin: No Jaundice
Neuro: AO x 3; No Slurred Speech, Facial Droop or Tremors
Psych: Calm and Intact Judgment/Insight
83 years old female presented with right femoral neck fracture
#Right femoral neck fracture secondary to mechanical fall
No documented history of osteopenia or osteoporosis
CT head no acute abnormality
c/w pain control with Tylenol and narcotics if truly in pain
Reviewed imaging studies
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
Started on aspirin for DVT prophylaxis
PT/OT
Right pelvis x-ray with- Right total hip arthroplasty dislocation with the femoral component superiorly displaced relative to the acetabular component. No prosthetic or periprosthetic fracture.
Await further orthopedic input (TT Dr. Upton and Dr. Johnson and Jose Ronquillo)-unclear if require repeat trip to OR
# Hyponatremia likely exacerbated by HCTZ use, can not rule out element of ADH excess
Patient has history of low sodium in the past.
Low serum and urine osmolality. Urine Na 76
Previous osmolarity testing showed low serum and urine osmolality.
s/p 1 dose of IV Lasix
Recommend to hold hydrochlorothiazide for now, Would dc upon discharge.
No confusion
Sodium stabilized at 130
#Intermittent severe anxiety
Does not want SSRI/SNRI. Plus with hyponatremia
If in severe panic attack can consider low dose ativan/xanax
# chronic HFpEF
Chest x-ray with no pulmonary edema.
No local extremity edema. Denies chest pain or shortness of breath
Echo with left ventricular ejection for 55 to 60% with normal left ventricular systolic function. Diastolic function indeterminate. Compared to echo 09/23 no changes
Can hold off on further Lasix. Not entirely convinced with patient in acute heart failure.
# History of cough, postviral syndrome
History of mild intermittent asthma
Chest radiography showed right midlung atelectasis which was seen in November 2023
No fever or chills
History of mildly productive sputum. No wheezes on exam.
Recently given Pulmicort by her primary priest Dr. Mina
Will ask pulmonary for input
# Hypokalemia
Replete and monitor
#Primary hypertension, was uncontrolled. ? Worsened due to severe anxiety
No chest pain or headache
Continue with losartan and can uptitrate dose if needed.
Continue to adjust medications according to blood pressure tolerance and clinical examination
# GERD, continue with PPI
# DVT prophylaxis asa
PT/OT-Acute rehab on dc once cleared from ortho.
Anticipated Discharge: Within 24 hours
Subjective/Interval History
-
Date of Service: May 21, 2024
Patient states of difficulty with ambulation
Required pain medication and Xanax overnight
Objective Data
-
Vital Signs:
Vital Signs
Temp Pulse Resp BP Pulse Ox
98.1 F 90 18 134/62 95
05/21/24 07:20 05/21/24 08:38 05/21/24 08:38 05/21/24 08:04 05/21/24 08:38
I&O
05/20/24 05/21/24 05/22/24
06:59 06:59 06:59
Intake Total 580 / 580 1380 / 1380
Output Total 575 / 575
Balance 5 / 1380 / 1380
--- NOTE | 2024-05-21 12:42 | W.PN.UPDATE ---
Update Note
Progress Note Update
Radiographs of the pelvis reveal a dislocation of her right ELO, with femoral component superior and likely anterior in relation to the acetabulum. No evidence of periprosthetic fracture. RBAs of nonsurgical and surgical management of this issue
discussed with the patient. She has accepted all the proposed risks of reduction vs. revision and wishes to proceed. Patient unfortunately ate breakfast @ 0800 and will need to wait until at least 1400 for the OR. Plan for ~1600 for closed vs. open
reduction vs. revision of her right ELO under the direction of Dr. Whitley. CT requested for surgical planning purposes. Patient heading to CT @ 1315. Surgical and blood consents were signed and placed on the patient's chart. Site marked as the
RIGHT hip. To remain NPO for now. T&S active. ABX/irrigation products oncology registrar
--- NOTE | 2024-05-21 15:49 | CM ---
Spoke with Koby from [facility] bed available .
Pt needs ortho surgery today.
Will need to speak with Koby [facility] when pt appropriate for dc /[facility].
PLAN Probable [facility] when appropriate
[2024-05-21] MEDS: XALATAN OPHTHALMIC SOLUTION 1 DROP BOTH EYES (17:58)
--- NOTE | 2024-05-21 18:00 | PTCARENOTE ---
Pt arrived back to [facility] [address] from PACU s/p R hip closed reduction. Pt has abductor pillow in place, NV intact, + pulses. R hip aquacel dressing C/D/I. Pt states she has no pain at this time. Pt bed locked in lowest position, call prabhakar within reach.
[2024-05-22] VITALS (8 sets, daily range): BP systolic 118–141; BP diastolic 50–64; PULSE 92–93; O2SAT 92
--- NOTE | 2024-05-22 04:28 | DOWNTIME ---
There was a [employer] Downtime on 05/22/2024 from 0100 to 05/22/2024 at 0255. Downtime documentation of patient's care, including medication administrations, has been reconciled in the electronic record per guidelines. Refer to the
patient's paper chart under the miscellaneous tab to see printed paper medication records and downtime forms.
[2024-05-22 05:42] LABS: % Basophils 0.4 % (0-2); % Eosinophils 1.8 % (0-6); % Immature Granulocytes 0.5 % (0-0.5); % Lymphocytes 23.8 % (20.5-51.1); % Monocytes 15.4 % (1.7-9.3); % Neutrophils 58.1 % (42.2-75.2); Absolute Eosinophils 0.1 10^3/uL (0-0.7); Absolute Lymphocytes 1.4 10^3/uL (1.2-3.4); Absolute Monocytes 0.9 10^3/uL (0.1-0.6); Absolute Neutrophils 3.3 10^3/uL (1.4-6.5); Hemoglobin 10.2 g/dL (12.0-16.0); Mean Corp Hgb Conc. 35.2 g/dL (33.0-37.0); Mean Corpuscular Hgb 32.4 pg (27.0-31.0); Mean Corpuscular Volume 92.1 fL (81.0-99.0); Mean Platelet Volume 11.3 fL (7.4-10.4); Nucleated Red Blood Cells % 0 %; Platelet Count 252 10^3/uL (130-400); Red Blood Cell Count 3.15 10^6/uL (4.20-5.40); Red Cell Dist. Width 13.3 % (11.5-14.5); White Blood Cell Count 5.7 10^3/uL (4.8-10.8)
[2024-05-22 05:58] LABS: Blood Urea Nitrogen 23 mg/dl (7-17); Calcium 9.3 mg/dl (8.4-10.2); Carbon Dioxide 29 mmol/L (22-30); Chloride 93 mmol/L (98-107); Estimated Creatinine Clearance 58 ml/min; Glucose 111 mg/dl (70-99); Potassium 4.1 mmol/L (3.5-5.1); Sodium 128 mmol/L (135-145); eGFR > 60.00
--- NOTE | 2024-05-22 07:16 | W.PN.ORTHO ---
Today's Communication / Plan
-
POD#3 Right ELO for fracture with Dr. Whitley, s/p right ELO closed reduction in the operating room 05/21/[address] Whitley
--Weight bearing as tolerated to right leg. Total hip precautions, no external rotation. Ambulate with assistive device
--PT/OT
--Continue with pain management as needed
--Aspirin 325mg daily for DVT prophylaxis x4 weeks
--Maintain surgical dressing for 7-10 days postop
--Follow up outpatient in 2 weeks
--Will continue to follow along
Assessment
.
Distal Motor Intact: Yes
Dressing:
Clean, dry and intact.
Plan
.
Surgery / Date: R ELO 05/19/24,R closed reduction 05/21/24 Angi
DVT Prophylaxis: Aspirin
Activity:
Out of bed.
PT/OT
Subjective
.
.:
Patient seen alongside Dr. Whitley this morning
She is resting comfortably in bed. She reports no pain in her hip. She has not been out of bed since she returned to her room last night.
Vital Signs and Labs
.
Vital Signs and Labs:
Lab Results
05/22/24 04:56
05/22/24 04:56
Temp Pulse Resp BP Pulse Ox
98.2 F 89 16 141/61 95
05/22/24 03:55 05/22/24 03:55 05/22/24 03:55 05/22/24 03:55 05/22/24 03:55
PT 14.5 Sec (11.4-14.6) 05/19/24 09:51
INR 1.15 05/19/24 09:51
Physical Exam
-
RLE: dressing clean, dry and intact. mild edema to thigh. no pain with passive range of motion of hip. able to plantarflex/dorsiflex the ankle. wiggles all toes. calf soft and nontender. NVI distally
[2024-05-22] MEDS: COZAAR 25 MG PO (07:55)
[2024-05-22] MEDS: ASPIRIN 325 MG PO (07:55)
[2024-05-22] MEDS: COLACE 100 MG PO ×2 (07:55→20:42)
[2024-05-22] MEDS: PROTONIX 40 MG PO (07:55)
[2024-05-22] MEDS: PULMICORT 0.5 MG INH ×2 (07:59→20:27)
[2024-05-22] MEDS: SYMBICORT 80/4.5 MCG INHALER 1 PUFF INH ×2 (07:59→20:26)
[2024-05-22] MEDS: TYLENOL 1000 MG PO ×2 (08:05→15:57)
[2024-05-22] MEDS: MUCINEX 1200 MG PO ×2 (09:45→20:42)
--- NOTE | 2024-05-22 11:03 | CM ---
Reviewed the chart notes and spoke with the patient at the bedside. IMM signed and placed on chart. CM spoke with Maria M [facility] Liaison. Bed will be available for patient when medically stable for discharge. No precert required. CM continues to
be available to patient/family and is monitoring medical plan for needs at discharge.
Plan: Discharge to [facility] when medically stable. No precert required.
--- NOTE | 2024-05-22 12:11 | W.PN.HOSP.TC ---
Today's Communication/Plan
-
PT evaluation
Assessment / Plan
Assessment / Plan
83 years old female presented with right femoral neck fracture
#Right femoral neck fracture secondary to mechanical fall
No documented history of osteopenia or osteoporosis
CT head no acute abnormality
c/w pain control with Tylenol and narcotics if truly in pain
Reviewed imaging studies
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
Started on aspirin for DVT prophylaxis
PT/OT
Right pelvis x-ray with- Right total hip arthroplasty dislocation with the femoral component superiorly displaced relative to the acetabular component. No prosthetic or periprosthetic fracture.
Await further orthopedic input (TT Dr. Upton and Dr. Johnson and Jose Ronquillo)-unclear if require repeat trip to OR
05/22
S/P right hip reduction
# Hyponatremia likely exacerbated by HCTZ use, can not rule out element of ADH excess
Patient has history of low sodium in the past.
Low serum and urine osmolality. Urine Na 76
Previous osmolarity testing showed low serum and urine osmolality.
s/p 1 dose of IV Lasix
Recommend to hold hydrochlorothiazide for now, Would dc upon discharge.
No confusion
continue to monitor
#Intermittent severe anxiety
Does not want SSRI/SNRI. Plus with hyponatremia
If in severe panic attack can consider low dose ativan/xanax
# chronic HFpEF
Chest x-ray with no pulmonary edema.
No local extremity edema. Denies chest pain or shortness of breath
Echo with left ventricular ejection for 55 to 60% with normal left ventricular systolic function. Diastolic function indeterminate. Compared to echo 09/23 no changes
Can hold off on further Lasix. Not entirely convinced with patient in acute heart failure.
# History of cough, postviral syndrome
History of mild intermittent asthma
Chest radiography showed right midlung atelectasis which was seen in November 2023
No fever or chills
History of mildly productive sputum. No wheezes on exam.
Recently given Pulmicort by her primary cub reporter Dr. Mina
Will ask pulmonary for input
# Hypokalemia
Replete and monitor
#Primary hypertension, was uncontrolled. ? Worsened due to severe anxiety
No chest pain or headache
Continue with losartan and can uptitrate dose if needed.
Continue to adjust medications according to blood pressure tolerance and clinical examination
# GERD, continue with PPI
# DVT prophylaxis asa
PT/OT-Acute rehab on dc once cleared from ortho.
Anticipated Discharge: 24 - 48 hours
Subjective/Interval History
-
Date of Service: May 22, 2024
Patient patient patient seen and examined at bedside, denies any chest pain or shortness of breath, no abdominal pain, no nausea, no vomiting, no diarrhea or constipation.
Status post right hip reduction last month.
PT/OT will evaluate today
Objective Data
-
Labs:
Laboratory Results
05/22/24
04:56
WBC 5.7
Hgb 10.2 L
Hct 29.0 L
Plt Count 252
Sodium 128 L
Potassium 4.1
Chloride 93 L
Carbon Dioxide 29
BUN 23 H
Creatinine 0.7
Glucose 111 H
Calcium 9.3
Vital Signs:
Vital Signs
Temp Pulse Resp BP Pulse Ox
99.1 F 91 18 121/50 95
05/22/24 11:31 05/22/24 11:31 05/22/24 11:31 05/22/24 11:31 05/22/24 11:31
I&O
05/21/24 05/22/24 05/23/24
06:59 06:59 06:59
Intake Total 1380 / 1380 400 / 400
Balance 1380 / 1380 400 / 400
Physical Exam
-
General: Well Developed and No Apparent Distress
HEENT: Normocephalic, Atraumatic and Moist Mucous Membranes
Respiratory: Clear to Auscultation
Cardiac: Regular Rhythm and S1/S2; Negative Murmur, Rub or Gallop
GI: Soft, Nontender, Nondistended and Normal Bowel Sounds; Negative Organomegaly
Rectal: Deferred by Provider
Musculoskeletal: No Clubbing, No Cyanosis and No Edema
Skin: Negative Rash
Neuro: Nonfocal/Grossly Intact
[2024-05-22] MEDS: XALATAN OPHTHALMIC SOLUTION 1 DROP BOTH EYES (17:58)
[2024-05-23] MEDS: TYLENOL 1000 MG PO (00:21)
[2024-05-23] MEDS: XANAX 0.25 MG PO (00:23)
[2024-05-23 05:18] LABS: Hematocrit 28.3 % (37.0-47.0); Mean Corp Hgb Conc. 35.3 g/dL (33.0-37.0); Mean Corpuscular Hgb 31.9 pg (27.0-31.0); Mean Corpuscular Volume 90.4 fL (81.0-99.0); Mean Platelet Volume 11.1 fL (7.4-10.4); Platelet Count 283 10^3/uL (130-400); Red Blood Cell Count 3.13 10^6/uL (4.20-5.40); Red Cell Dist. Width 13.2 % (11.5-14.5); White Blood Cell Count 6.8 10^3/uL (4.8-10.8)
[2024-05-23 05:39] LABS: Blood Urea Nitrogen 22 mg/dl (7-17); Calcium 9.3 mg/dl (8.4-10.2); Carbon Dioxide 27 mmol/L (22-30); Chloride 94 mmol/L (98-107); Estimated Creatinine Clearance 68 ml/min; Glucose 121 mg/dl (70-99); Potassium 4.4 mmol/L (3.5-5.1); Sodium 130 mmol/L (135-145); eGFR > 60.00
[2024-05-23] MEDS: COZAAR 25 MG PO (07:44)
[2024-05-23] MEDS: COLACE 100 MG PO (07:44)
[2024-05-23] MEDS: PROTONIX 40 MG PO (07:44)
[2024-05-23] MEDS: MUCINEX 1200 MG PO (07:44)
[2024-05-23] MEDS: ASPIRIN 325 MG PO (07:44)
--- NOTE | 2024-05-23 07:51 | W.PN.ORTHO ---
Today's Communication / Plan
-
PT/OT
Weightbearing as tolerated with walker
Hip precautions with abductor pillow while asleep
Aspirin for DVT prophylaxis
Return to office 2 weeks to check her progress
[facility]
Assessment
.
Distal Motor Intact: Yes
Dressing:
Clean, dry and intact.
Plan
.
Surgery / Date: R ELO 05/19/24,R closed reduction 05/21/24 [facility]
DVT Prophylaxis: Aspirin
Activity:
Out of bed.
PT/OT
Discharge Plan: Rehab
Subjective
.
.:
Patient resting comfortably.
Vital Signs and Labs
.
Vital Signs and Labs:
Lab Results
05/23/24 05:02
05/23/24 05:02
Temp Pulse Resp BP Pulse Ox
98.2 F 85 16 124/75 97
05/22/24 23:58 05/23/24 07:44 05/22/24 23:58 05/23/24 07:44 05/22/24 23:58
PT 14.5 Sec (11.4-14.6) 05/19/24 09:51
INR 1.15 05/19/24 09:51
Physical Exam
-
Patient has abductor pillow in place. Clinically it does not appear as though she is dislocated this morning. Abductor pillow in place.
[2024-05-23 07:52] VITALS: BP 125/68
[2024-05-23] MEDS: SYMBICORT 80/4.5 MCG INHALER 1 PUFF INH (07:55)
[2024-05-23] MEDS: PULMICORT 0.5 MG INH (07:55)
[2024-05-23 08:49] VITALS: BMI 27.1
--- NOTE | 2024-05-23 11:07 | W.PN.HOSP.TC ---
Today's Communication/Plan
-
Discharge today
Assessment / Plan
Assessment / Plan
83 years old female presented with right femoral neck fracture
#Right femoral neck fracture secondary to mechanical fall
No documented history of osteopenia or osteoporosis
CT head no acute abnormality
c/w pain control with Tylenol and narcotics if truly in pain
Reviewed imaging studies
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
Started on aspirin for DVT prophylaxis
PT/OT
Right pelvis x-ray with- Right total hip arthroplasty dislocation with the femoral component superiorly displaced relative to the acetabular component. No prosthetic or periprosthetic fracture.
Await further orthopedic input (TT Dr. Upton and Dr. Johnson and Jose Ronquillo)-unclear if require repeat trip to OR
05/22
S/P right hip reduction
05/23
Discharge to rehab today
# Hyponatremia likely exacerbated by HCTZ use, can not rule out element of ADH excess
Patient has history of low sodium in the past.
Low serum and urine osmolality. Urine Na 76
Previous osmolarity testing showed low serum and urine osmolality.
s/p 1 dose of IV Lasix
Recommend to hold hydrochlorothiazide for now, Would dc upon discharge.
No confusion
continue to monitor
05/23 improved
#Intermittent severe anxiety
Does not want SSRI/SNRI. Plus with hyponatremia
If in severe panic attack can consider low dose ativan/xanax
# chronic HFpEF
Chest x-ray with no pulmonary edema.
No local extremity edema. Denies chest pain or shortness of breath
Echo with left ventricular ejection for 55 to 60% with normal left ventricular systolic function. Diastolic function indeterminate. Compared to echo 09/23 no changes
Can hold off on further Lasix. Not entirely convinced with patient in acute heart failure.
# History of cough, postviral syndrome
History of mild intermittent asthma
Chest radiography showed right midlung atelectasis which was seen in November 2023
No fever or chills
History of mildly productive sputum. No wheezes on exam.
Recently given Pulmicort by her primary clinician oncology Dr. Mina
Will ask pulmonary for input
# Hypokalemia
Replete and monitor
#Primary hypertension, was uncontrolled. ? Worsened due to severe anxiety
No chest pain or headache
Continue with losartan and can uptitrate dose if needed.
Continue to adjust medications according to blood pressure tolerance and clinical examination
# GERD, continue with PPI
# DVT prophylaxis asa
PT/OT-Acute rehab, discharge today.
Anticipated Discharge: Today
Subjective/Interval History
-
Date of Service: May 23, 2024
Patient seen and examined at bedside, denies any chest pain or shortness of breath, no abdominal pain, no nausea, no vomiting, no diarrhea or constipation.
Still coughing, had bowel movement yesterday, did work with physical therapy.
Plan to discharge to rehab today.
Objective Data
-
Labs:
Laboratory Results
05/23/24
05:02
WBC 6.8
Hgb 10.0 L
Hct 28.3 L
Plt Count 283
Sodium 130 L
Potassium 4.4
Chloride 94 L
Carbon Dioxide 27
BUN 22 H
Creatinine 0.6
Glucose 121 H
Calcium 9.3
Vital Signs:
Vital Signs
Temp Pulse Resp BP Pulse Ox
98.3 F 78 16 125/68 96
05/23/24 07:52 05/23/24 07:58 05/23/24 07:58 05/23/24 07:52 05/23/24 07:58
I&O
05/22/24 05/23/24 05/24/24
06:59 06:59 06:59
Intake Total 400 / 400 1200 / 1200
Output Total 100 / 100
Balance 400 / 400 1100 / 1100
Physical Exam
-
General: Well Developed and No Apparent Distress
HEENT: Normocephalic, Atraumatic and Moist Mucous Membranes
Respiratory: Clear to Auscultation
Cardiac: Regular Rhythm and S1/S2; Negative Murmur, Rub or Gallop
GI: Soft, Nontender, Nondistended and Normal Bowel Sounds; Negative Organomegaly
Rectal: Deferred by Provider
Musculoskeletal: No Clubbing, No Cyanosis, No Edema and Other (Tender at right hip)
Skin: Negative Rash
Neuro: Nonfocal/Grossly Intact
--- NOTE | 2024-05-23 11:09 | W.DCSUMMARY ---
Discharge Summary
Discharge Data
Date of Admission: 05/18/24
Date of Discharge: 05/23/24
-
Pending Results: No
Hospital Course
83 years old female presented with right femoral neck fracture
#Right femoral neck fracture secondary to mechanical fall
No documented history of osteopenia or osteoporosis
CT head no acute abnormality
c/w pain control with Tylenol and narcotics if truly in pain
Reviewed imaging studies
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
Started on aspirin for DVT prophylaxis
PT/OT
Right pelvis x-ray with- Right total hip arthroplasty dislocation with the femoral component superiorly displaced relative to the acetabular component. No prosthetic or periprosthetic fracture.
Await further orthopedic input (TT Dr. Upton and Dr. Johnson and Jose Ronquillo)-unclear if require repeat trip to OR
05/22
S/P right hip reduction
05/23
Discharge to rehab today
# Hyponatremia likely exacerbated by HCTZ use, can not rule out element of ADH excess
Patient has history of low sodium in the past.
Low serum and urine osmolality. Urine Na 76
Previous osmolarity testing showed low serum and urine osmolality.
s/p 1 dose of IV Lasix
Recommend to hold hydrochlorothiazide for now, Would dc upon discharge.
No confusion
continue to monitor
05/23 improved
#Intermittent severe anxiety
Does not want SSRI/SNRI. Plus with hyponatremia
If in severe panic attack can consider low dose ativan/xanax
# chronic HFpEF
Chest x-ray with no pulmonary edema.
No local extremity edema. Denies chest pain or shortness of breath
Echo with left ventricular ejection for 55 to 60% with normal left ventricular systolic function. Diastolic function indeterminate. Compared to echo 09/23 no changes
Can hold off on further Lasix. Not entirely convinced with patient in acute heart failure.
# History of cough, postviral syndrome
History of mild intermittent asthma
Chest radiography showed right midlung atelectasis which was seen in November 2023
No fever or chills
History of mildly productive sputum. No wheezes on exam.
Recently given Pulmicort by her primary shell fisherman Dr. Mina
Will ask pulmonary for input
# Hypokalemia
Replete and monitor
#Primary hypertension, was uncontrolled. ? Worsened due to severe anxiety
No chest pain or headache
Continue with losartan and can uptitrate dose if needed.
Continue to adjust medications according to blood pressure tolerance and clinical examination
# GERD, continue with PPI
# DVT prophylaxis asa
PT/OT-Acute rehab, discharge today.
Discharge Plan
-
Patient Disposition: Acute Rehab Facility
Discharge Diagnosis/Procedures: Right femoral neck fracture status post total right hip arthroplasty
Hyponatremia
Intermittent severe anxiety
Condition: Fair
Diet: As tolerated
Activity: With assistance and As tolerated
Driving Restrictions: Not until seen by your Dr
Referrals:
Tita Mina MD [Active] - (6 weeks with [facility] or [facility])
Ascencion Terrazas MD [Family Provider] -
Michael Whitley MD [Active] - in two to four weeks
Prescriptions:
New
alprazolam 0.25 mg Tablet
0.25 mg PO DAILYPRN PRN (Reason: severe anxiety) 3 Days Qty: 3 0RF
oxycodone 5 mg Tablet
2.5 mg PO Q4HPRN PRN (Reason: mod-severe pain) 3 Days Qty: 7 0RF
aspirin 325 mg Tablet
325 mg PO DAILY 26 Days Qty: 26 0RF
docusate sodium 100 mg Capsule
100 mg PO BID Qty: 20 0RF
guaifenesin 600 mg Tablet Extended Release 12hr
1,200 mg PO Q12 Qty: 0 0RF
Continued
latanoprost 1 DROP drops
1 drp ophthalmic (eye) QPM
Rx Instructions:
each eye
rosuvastatin 5 MG tablet
See Rx Instructions .ROUTE .COMPLEX
Rx Instructions:
5 mg orally, mon, tues, wed, fri, sat
calcium carbonate-vitamin D3 [Oyster Shell Calcium-Vit D3] 500 MG tablet
500 mg PO DAILY
budesonide-formoterol [Symbicort] 1 PUFF HFA aerosol inhaler
1 puff inhalation R BID
multivitamin with folic acid [Tab-A-Adri] 1 TABLET tablet
1 tab PO DAILY
olopatadine 0.2 % Drops
1 drp OPHTHALMIC (EYE) DAILY PRN (Reason: itching)
omeprazole 20 mg Tablet,Delayed Release (Dr/Ec)
20 mg PO DAILY
losartan 25 mg Tablet
25 mg PO DAILY
zinc 50 mg Tablet
50 mg PO DAILY
B-complex with vitamin C [Vitamin B Complex-C] Tablet
1 tab PO DAILY
psyllium seed (sugar) Powder
1 tbsp PO BID
[id number]-diana-bosw [Glucosamine-Chondroitin 3X] 750-625-30 mg Tablet
1 tab PO BID
Held
aspirin 81 MG tablet,chewable
81 mg PO DAILY
Hold Instructions: Resume on 06/17/24.
Rx Instructions:
After finishing the 325 mg tablets.
Discontinued
hydrochlorothiazide 25 mg Tablet
25 mg PO DAILY
No Action
amlodipine 5 mg Tablet
5 mg PO DAILY
Discharge Orders:
Discharge Patient (As Directed); Ordered 05/23/24
Ordered By: Marina Schultz
Discharge Date and Time
Print Language: UZBEK
[2024-05-23 11:28] VITALS: BP 97/62
--- NOTE | 2024-05-23 11:55 | CM ---
Reviewed the chart notes. Patient for discharge to [facility] today. CM continues to be available to patient/family and is monitoring medical plan for needs at discharge.
Plan: Discharge to [facility] today.
Call report to: [phone]
Fax report to: [phone]
[2024-05-23 13:18] VITALS: BP 108/59
== END 2024-05-23 14:04 | DRG 522 ==
LOC: 2 SOUTH 17:02
PROVIDERS: Hospitalist; Physician Assistant Medical; ADMITTING PHYSICIAN Internal Medicine; ATTENDING PHYSICIAN General Practice; CONSULT PHYSICIAN Internal Medicine Critical Care Medicine; CONSULT PHYSICIAN Orthopaedic Surgery; EMERGENCY PHYSICIAN Student in an Organized Health Care Education/Training Program; FAMILY PHYSICIAN Family Medicine
PROC: 0SR90J9 Replacement of Right Hip Joint with Synthetic Substitute, Cemented, Open Approach (ICD-10-PCS; 2024-05-19)
PROC: 0SS9XZZ Reposition Right Hip Joint, External Approach (ICD-10-PCS; 2024-05-21)
DX: S72.001A Fracture of unspecified part of neck of right femur, initial encounter for closed fracture (principal); E87.1 Hypo-osmolality and hyponatremia; T84.020A Dislocation of internal right hip prosthesis, initial encounter; I50.32 Chronic diastolic (congestive) heart failure; J98.11 Atelectasis; I11.0 Hypertensive heart disease with heart failure; I34.1 Nonrheumatic mitral (valve) prolapse; J45.20 Mild intermittent asthma, uncomplicated; Y79.2 Prosthetic and other implants, materials and accessory orthopedic devices associated with adverse incidents; Y92.239 Unspecified place in hospital as the place of occurrence of the external cause; J20.9 Acute bronchitis, unspecified; R05.8 Other specified cough; R53.1 Weakness; U09.9 Post COVID-19 condition, unspecified; E78.5 Hyperlipidemia, unspecified; K21.9 Gastro-esophageal reflux disease without esophagitis; I87.2 Venous insufficiency (chronic) (peripheral); E87.6 Hypokalemia; R06.83 Snoring; F41.9 Anxiety disorder, unspecified; W18.30XA Fall on same level, unspecified, initial encounter; Y92.009 Unspecified place in unspecified non-institutional (private) residence as the place of occurrence of the external cause; Z79.82 Long term (current) use of aspirin; Z79.899 Other long term (current) drug therapy; Z79.51 Long term (current) use of inhaled steroids; Z88.0 Allergy status to penicillin; Z82.49 Family history of ischemic heart disease and other diseases of the circulatory system
CPT/HCPCS: 70450; 71045; 71046; 72170; 72192; 73502; 73552; 73700; 76000; 80048; 80053; 81003; 83735; 83880; 83930; 83935; 84300; 84484; 85025; 85027; 85610; 86850; 86900; 86901; 93005; 93306; 94640; 96374; 97116; 97163; 97164; 97167; 97168; 97530; 97535; 99285; C1713; C1776

== ENCOUNTER → 2024-06-13 14:53 | Outpatient (REF) | payer MEDICARE, OTHER, SELFPAY ==
[2024-06-13 16:26] LABS: % Basophils 0.7 % (0-2); % Eosinophils 2.2 % (0-6); % Immature Granulocytes 0.2 % (0-0.5); % Lymphocytes 37.7 % (20.5-51.1); % Monocytes 12.8 % (1.7-9.3); % Neutrophils 46.4 % (42.2-75.2); Absolute Eosinophils 0.1 10^3/uL (0-0.7); Absolute Lymphocytes 2.2 10^3/uL (1.2-3.4); Absolute Monocytes 0.8 10^3/uL (0.1-0.6); Absolute Neutrophils 2.7 10^3/uL (1.4-6.5); Hematocrit 31.3 % (37.0-47.0); Hemoglobin 10.4 g/dL (12.0-16.0); Mean Corp Hgb Conc. 33.2 g/dL (33.0-37.0); Mean Corpuscular Hgb 31.4 pg (27.0-31.0); Mean Corpuscular Volume 94.6 fL (81.0-99.0); Mean Platelet Volume 11.1 fL (7.4-10.4); Nucleated Red Blood Cells % 0 %; Platelet Count 378 10^3/uL (130-400); Red Blood Cell Count 3.31 10^6/uL (4.20-5.40); Red Cell Dist. Width 15.4 % (11.5-14.5); White Blood Cell Count 5.9 10^3/uL (4.8-10.8)
[2024-06-13 16:47] LABS: ALT (SGPT) 16 U/L (0-35); AST (SGOT) 25 U/L (14-36); Albumin 3.9 g/dl (3.5-5.0); Alkaline Phosphatase 107 U/L (38-126); Blood Urea Nitrogen 14 mg/dl (7-17); Calcium 10.2 mg/dl (8.4-10.2); Carbon Dioxide 24 mmol/L (22-30); Chloride 100 mmol/L (98-107); Glucose 112 mg/dl (70-99); Potassium 4.3 mmol/L (3.5-5.1); Sodium 133 mmol/L (135-145); Total Bilirubin 0.5 mg/dl (0.2-1.3); Total Protein 6.8 g/dl (6.3-8.2); eGFR > 60.00
== END ==
LOC: REG 14:53
PROVIDERS: ATTENDING PHYSICIAN Physician Assistant Medical; FAMILY PHYSICIAN Family Medicine
DX: D64.9 Anemia, unspecified (principal); E87.1 Hypo-osmolality and hyponatremia; I10 Essential (primary) hypertension; R30.0 Dysuria
CPT/HCPCS: 36415; 80053; 85025

== ENCOUNTER → 2024-06-17 10:28 | Outpatient (REF) | payer MEDICARE, OTHER, SELFPAY ==
[2024-06-17 16:59] LABS: Urine Albumin Negative (Neg - Trace); Urine Bilirubin Negative (Negative); Urine Character Clear (Clear); Urine Color Yellow; Urine Glucose Negative (Negative); Urine Ketone Negative (Negative); Urine Leukocyte 1+ (Negative); Urine Nitrite Negative (Negative); Urine Occult Blood Negative (Negative); Urine Specific Gravity 1.015 (<1.030); Urine Urobilinogen Negative (Neg - 1+)
[2024-06-17 17:06] LABS: Urine Bacteria Many (Negative); Urine Calcium Oxalate Crystals Present; Urine Red Blood Cell 0-2 /HPF (0-2); Urine Squamous Cell >30 /LPF (Few)
== END ==
LOC: REG 10:28
PROVIDERS: ATTENDING PHYSICIAN Family Medicine
DX: R30.0 Dysuria (principal)
CPT/HCPCS: 81003; 81015; 87086

== ENCOUNTER → 2024-06-20 10:15 | Outpatient (REF) | payer MEDICARE, OTHER, SELFPAY | LOC: REG 10:15 | PROVIDERS: ATTENDING PHYSICIAN Family Medicine | DX: R30.0 Dysuria (principal) | CPT/HCPCS: 87086 ==

== ENCOUNTER 2024-07-25 14:46 | Emergency (ER) | payer MEDICARE, OTHER, SELFPAY ==
[2024-07-25 14:49] VITALS: BP 141/72
[2024-07-25 15:02] VITALS: BMI 26.6
--- NOTE | 2024-07-25 15:17 | ED.GENMED ---
History of Present Illness
General
Chief Complaint: Chest Pain
Time Seen by Provider: 07/25/24 15:05
History of Present Illness
History of Present Illness:
Patient presents to the emergency department with resolved episode of chest pain. Symptoms started around 9 AM when she was walking around on her rollator. She notes that she was having left-sided chest pain. It did not radiate. There is no
associated nausea, diaphoresis, dyspnea. symptoms resolved upon resting. Chronic lower edema that is unchanged. Denies fevers or cough. Has not had any symptoms since then.
Past History
Past History
ED Past Medical History: Asthma
ED Past Surgical History: Orthopedic and Other
Social History
Tobacco: Non-smoker
Alcohol: None
Personal:
Phy Exam
Physical Exam
Physical Exam:
GENERAL APPEARANCE: NAD, well developed/ well nourished
EYES lids/conjunctiva normal
EARS/NOSE/THROAT Mucous membranes moist
NECK No JVD
HEAD/NECK normocephalic atraumatic, neck is supple.
RESPIRATORY respiratory effort normal, speaks in full sentences, no accessory muscle use. Lungs clear to auscultation without rhonchi, wheezes, rales
CARDIAC Regular rate and rhythm, bilateral symmetric trace pitting edema
ABDOMINAL Soft, ND/NT. No pulsatile masses on exam, rebound tenderness, Quiroz sign or pain over Mcburney's point.
MUSCLES/EXTREMITIES No abnormal range of motion, no swelling.
SKIN Warm, pink and dry. No rashes
NEUROLOGICAL Speech is clear and appropriate. Normal level of consciousness. 5/5 strength in all extremities.
PSYCH Normal mood and affect. Judgement/competence is appropriate
Scores
Heart Score for Chest Pain Patients
STEMI patient?: Not applicable
Course
Orders/Labs/Results
Orders:
Orders
07/25/24 14:47
Electrocardiogram (*1) Urgent
Reason for Study: Chest Pain
EKG- Treatment ONCE
07/25/24 15:15
Pulse Ox/cont/shift [RESP] Stat
Quantity: 1
07/25/24 15:16
CR Chest - 2 Views Urgent
Comment:
Reason For Exam: cp
07/25/24 15:19
Basic Metabolic Panel Urgent
Complete Blood Count/With Diff Urgent
Troponin I Urgent
07/25/24 17:56
Troponin I Urgent
Abnormal Lab Results
07/25/24
15:19
RBC 3.48 L 10^6/uL
(4.20-5.40)
Hgb 11.2 L g/dL
(12.0-16.0)
Hct 33.6 L %
(37.0-47.0)
MCH 32.2 H pg
(27.0-31.0)
MPV 12.7 H fL
(7.4-10.4)
Monocytes % 9.5 H %
(1.7-9.3)
BUN 28 H mg/dl
(7-17)
Glucose 128 H mg/dl
(70-99)
07/25/24 15:19
07/25/24 15:19
Vital Signs
Initial and Last Documented VS:
Initial Vital Signs
Temp Pulse Resp BP Pulse Ox
99.6 F 85 18 141/72 97
07/25/24 14:49 07/25/24 14:49 07/25/24 14:49 07/25/24 14:49 07/25/24 14:49
Last Documented Vital Signs
Temp Pulse Resp BP Pulse Ox
99.6 F 69 16 158/69 99
07/25/24 14:49 07/25/24 19:48 07/25/24 19:48 07/25/24 19:48 07/25/24 19:48
*Critical Care Note
Total Time (30-74mins, 75-104mins- exclusive of procedures): Not Applicable
ED Attending Note
ED Attending Note
ED Attending Note:
Patient with exertional left-sided chest pain that resolved with rest. Concerning for angina. No ongoing chest pain. No ischemic changes on EKG. Plan to rule out ACS with 2 set troponin given symptoms started around 6 hours prior to blood draw.
Not suggestive of PE given intermittent symptoms, patient currently assymptomatic. Patient did have stress test earlier this year that did not show
-
Portions of this chart may have been created with voice recognition software.� Occasional wrong word or��sound alike� substitutions may have occurred due to the inherent limitations of voice recognition software.
Discharge Plan
Departure
Patient Disposition: Home (Routine Discharge)
Date of Disposition: 07/25/24
Time of Disposition: 18:38
Patient with high blood pressure during this ER visit?: Yes
Discharge Problem:
Chest pain
Instructions: Chest Pain DCA Follow Up
Prescriptions:
No Action
latanoprost 1 DROP drops
1 drp ophthalmic (eye) QPM
Rx Instructions:
each eye
multivitamin with folic acid [Tab-A-Adri] 1 TABLET tablet
1 tab PO DAILY
olopatadine 0.2 % Drops
1 drp OPHTHALMIC (EYE) DAILY PRN (Reason: itching)
anqrhlqb-[id number]-[id number]-diana-bosw [Glucosamine-Chondroitin 3X] 750-625-30 mg Tablet
1 tab PO BID
alprazolam 0.25 mg Tablet
0.25 mg PO DAILYPRN PRN (Reason: severe anxiety) 3 Days Qty: 3 0RF
oxybutynin chloride 5 mg Tablet
30 mg PO HS Qty: 30 0RF
guaifenesin 600 mg Tablet Extended Release 12hr
600 mg PO Q12 15 Days Qty: 30 0RF
lidocaine [Lidocan IV] 5 % adhesive patch,medicated
1 patch topical DAILY 30 Days Qty: 30 0RF
atorvastatin 10 mg Tablet
10 mg PO [id number]@1800 30 Days Qty: 22 0RF
Metamucil Fiber Singles 3.4 gram Powder In Packet
1 packet PO DAILY 30 Days Qty: 30 0RF
pantoprazole 40 mg Tablet,Delayed Release (Dr/Ec)
40 mg PO DAILY 30 Days Qty: 30 0RF
budesonide 0.25 mg/2 mL Suspension For Nebulization
0.25 mg inhalation R BID 30 Days Qty: 120 0RF
sodium chloride 1,000 mg Tablet,Soluble
1,000 mg PO BID 30 Days Qty: 60 0RF
acetaminophen 325 mg Tablet
650 mg PO Q6HPRN PRN (Reason: mild pain) 15 Days Qty: 90 0RF
tramadol 50 mg Tablet
25 mg PO Q6 PRN (Reason: moderate pain) 3 Days Qty: 6 0RF
cholecalciferol (vitamin D3) 50 mcg (2,000 unit) Tablet
50 mcg PO DAILY 30 Days Qty: 30 0RF
zinc sulfate 50 mg zinc (220 mg) Capsule
220 mg PO DAILY 30 Days Qty: 132 0RF
sertraline 25 mg Tablet
25 mg PO DAILY 30 Days Qty: 30 0RF
aspirin 325 mg Tablet
325 mg PO DAILY 26 Days Qty: 26 0RF
amlodipine 5 mg Tablet
5 mg PO DAILY Qty: 0 0RF
docusate sodium 100 mg Capsule
100 mg PO BID Qty: 20 0RF
budesonide-formoterol [Symbicort] 1 PUFF HFA aerosol inhaler
1 puff inhalation R BID 30 Days Qty: 1 0RF
budesonide 0.25 mg/2 mL suspension for nebulization
0.25 mg inhalation BID PRN (Reason: asthma, cough) 30 Days Qty: 120 0RF
Rx Instructions:
cpt code- J45.909
Referrals:
Blanca Lopez MD [Family Provider] -
Interventions
Interventions:
*Risk Screen - Suicide Last Done: 07/25/24 14:49
*General Assessment Last Done: 07/25/24 14:49
*Neglect/Abuse Screening Last Done: 07/25/24 14:49
*ED COVID-19 Vaccine History Last Done: 07/25/24 15:07
*Nursing Disposition Last Done: 07/25/24 19:48
ED- Cardiac Assessment Last Done: 07/25/24 15:03
Discharge Date and Time
Discharge Date/Time: 07/25/24 19:48
Print Language: [id number]
[2024-07-25 15:21] VITALS: BP 127/55
[2024-07-25 15:29] LABS: % Basophils 0.6 % (0-2); % Immature Granulocytes 0.4 % (0-0.5); % Monocytes 9.5 % (1.7-9.3); % Neutrophils 56.5 % (42.2-75.2); Absolute Eosinophils 0.3 10^3/uL (0-0.7); Absolute Lymphocytes 1.3 10^3/uL (1.2-3.4); Absolute Monocytes 0.5 10^3/uL (0.1-0.6); Absolute Neutrophils 2.8 10^3/uL (1.4-6.5); Hematocrit 33.6 % (37.0-47.0); Hemoglobin 11.2 g/dL (12.0-16.0); Mean Corp Hgb Conc. 33.3 g/dL (33.0-37.0); Mean Corpuscular Hgb 32.2 pg (27.0-31.0); Mean Corpuscular Volume 96.6 fL (81.0-99.0); Mean Platelet Volume 12.7 fL (7.4-10.4); Nucleated Red Blood Cells % 0 %; Platelet Count 183 10^3/uL (130-400); Red Blood Cell Count 3.48 10^6/uL (4.20-5.40); Red Cell Dist. Width 14.3 % (11.5-14.5)
[2024-07-25 15:50] LABS: Blood Urea Nitrogen 28 mg/dl (7-17); Calcium 9.6 mg/dl (8.4-10.2); Carbon Dioxide 23 mmol/L (22-30); Chloride 101 mmol/L (98-107); Estimated Creatinine Clearance 50 ml/min; Glucose 128 mg/dl (70-99); Potassium 4.2 mmol/L (3.5-5.1); Sodium 137 mmol/L (135-145); eGFR > 60.00
[2024-07-25 15:52] LABS: Troponin I < 0.012 ng/ml
[2024-07-25 18:33] VITALS: BP 154/73
[2024-07-25 18:36] LABS: Troponin I < 0.012 ng/ml
[2024-07-25 19:48] VITALS: BP 158/69
== END 2024-07-25 19:48 | disposition home or self-care (01) ==
LOC: EMR 14:46
PROVIDERS: EMERGENCY PHYSICIAN Emergency Medicine; FAMILY PHYSICIAN Family Medicine
DX: R07.89 Other chest pain (principal); R03.0 Elevated blood-pressure reading, without diagnosis of hypertension
CPT/HCPCS: 99285; 71046; 80048; 84484; 85025; 93005

== ENCOUNTER → 2024-08-23 12:53 | Outpatient (REF) | payer MEDICARE, OTHER, SELFPAY ==
[2024-08-23 19:24] LABS: % Basophils 0.7 % (0-2); % Eosinophils 5.7 % (0-6); % Immature Granulocytes 0.3 % (0-0.5); % Lymphocytes 29.1 % (20.5-51.1); % Monocytes 7.7 % (1.7-9.3); % Neutrophils 56.5 % (42.2-75.2); Absolute Eosinophils 0.4 10^3/uL (0-0.7); Absolute Lymphocytes 1.8 10^3/uL (1.2-3.4); Absolute Monocytes 0.5 10^3/uL (0.1-0.6); Absolute Neutrophils 3.4 10^3/uL (1.4-6.5); Hematocrit 37.3 % (37.0-47.0); Mean Corp Hgb Conc. 32.2 g/dL (33.0-37.0); Mean Corpuscular Hgb 30.9 pg (27.0-31.0); Mean Corpuscular Volume 96.1 fL (81.0-99.0); Mean Platelet Volume 13.4 fL (7.4-10.4); Nucleated Red Blood Cells % 0 %; Platelet Count 193 10^3/uL (130-400); Red Blood Cell Count 3.88 10^6/uL (4.20-5.40); Red Cell Dist. Width 14.5 % (11.5-14.5); White Blood Cell Count 6.1 10^3/uL (4.8-10.8)
[2024-08-23 19:30] LABS: ALT (SGPT) 19 U/L (0-35); AST (SGOT) 32 U/L (14-36); Albumin 4.2 g/dl (3.5-5.0); Alkaline Phosphatase 112 U/L (38-126); Blood Urea Nitrogen 30 mg/dl (7-17); Calcium 10.2 mg/dl (8.4-10.2); Carbon Dioxide 27 mmol/L (22-30); Chloride 102 mmol/L (98-107); Glucose 95 mg/dl (70-99); HDL Cholesterol 76 mg/dl; Iron 89 ug/dl (37-170); LDL Cholesterol, Calculated 94 mg/dl; Potassium 4.9 mmol/L (3.5-5.1); Sodium 139 mmol/L (135-145); Total Bilirubin 0.4 mg/dl (0.2-1.3); Total Cholesterol 183 mg/dl (50-199); Triglyceride 69 mg/dl (10-149); Very Low Density Lipoprotein 13 mg/dl (0-30); eGFR > 60.00
[2024-08-23 20:07] LABS: TSH Reflex To Free T4 2.24 uIU/ml (0.47-4.68)
[2024-08-26 00:05] LABS: Erythropoietin (EPO) 12 mU/mL (4-27)
== END ==
LOC: CLAB 12:53
PROVIDERS: ATTENDING PHYSICIAN Family Medicine
DX: R79.9 Abnormal finding of blood chemistry, unspecified (principal); Z01.89 Encounter for other specified special examinations; Z79.899 Other long term (current) drug therapy; D64.9 Anemia, unspecified
CPT/HCPCS: 80053; 80061; 82668; 82728; 83540; 84443; 85025

== ENCOUNTER → 2024-09-24 09:54 | Outpatient (REF) | payer MEDICARE, OTHER, SELFPAY ==
[2024-09-24 12:02] LABS: ALT (SGPT) 21 U/L (0-35); AST (SGOT) 34 U/L (14-36); Albumin 3.8 g/dl (3.5-5.0); Alkaline Phosphatase 129 U/L (38-126); Blood Urea Nitrogen 27 mg/dl (7-17); Calcium 10.2 mg/dl (8.4-10.2); Carbon Dioxide 28 mmol/L (22-30); Chloride 103 mmol/L (98-107); Glucose 91 mg/dl (70-99); HDL Cholesterol 70 mg/dl; LDL Cholesterol, Calculated 89 mg/dl; Potassium 4.5 mmol/L (3.5-5.1); Sodium 139 mmol/L (135-145); Total Bilirubin 0.4 mg/dl (0.2-1.3); Total Cholesterol 174 mg/dl (50-199); Total Protein 6.5 g/dl (6.3-8.2); Triglyceride 75 mg/dl (10-149); Very Low Density Lipoprotein 15 mg/dl (0-30); eGFR > 60.00
== END ==
LOC: OLABWIL 09:54
PROVIDERS: ATTENDING PHYSICIAN Internal Medicine Interventional Cardiology
DX: I10 Essential (primary) hypertension (principal); E78.00 Pure hypercholesterolemia, unspecified
CPT/HCPCS: 36415; 80053; 80061

== ENCOUNTER 2024-10-24 16:16 | Inpatient (IN) | payer MEDICARE, OTHER, SELFPAY ==
[2024-10-24] VITALS (10 sets, daily range): BP systolic 130–177; BP diastolic 67–83; BMI 25.9; BMI 24.6
--- NOTE | 2024-10-24 11:05 | ED.GENMED ---
History of Present Illness
General
Chief Complaint: Abdominal Pain
Time Seen by Provider: 10/24/24 10:40
History of Present Illness
History of Present Illness:
84-year-old female with history of hypertension, hyperlipidemia, and GERD presents to the emergency department for evaluation of upper abdominal pain ongoing for the past 6 days. Pain seems to be without obvious provocation but does transiently
improve after eating. Does not radiate. No fevers or chills. No history of abdominal surgery. Does take baby aspirin and Celebrex but is on prophylactic Protonix.
Past History
Past History
ED Past Medical History: Asthma
ED Past Surgical History: Orthopedic and Other
Social History
Tobacco: Non-smoker
Alcohol: None
Personal:
Review of Systems
Review of Systems
Allergies reviewed?: Yes
All Other Systems: ROS reviewed and negative except as documented in HPI and ROS
Phy Exam
Physical Exam
Physical Exam:
GEN: Well appearing, NAD, WDWN
HEENT: Oral mucosa moist, no scleral icterus
Cardiac: Regular rate and rhythm
Lung: No respiratory distress, no tachypnea
Abdomen: Soft, mild right upper quadrant tenderness, negative Quiroz sign
MSK: No gross deformity or injuries
Skin: Good color, no pallor or jaundice, no rashes
Neuro: AO x3, moves all extremities freely
Psych: Calm, cooperative
Course
Orders/Labs/Results
Orders:
Orders
10/24/24 11:04
US Abdomen Complete/Upper Urgent
Comment:
Reason For Exam: RUQ pain
10/24/24 11:13
Complete Blood Count/With Diff Urgent
Comprehensive Metabolic Panel Urgent
Lipase Urgent
10/24/24 12:56
CT Abd/Pel (IV only)-[facility] only Urgent
Comment:
Reason For Exam: RUQ pain, pancreatic/hepatic mass on US
10/24/24 15:20
Urinalysis Reflex To Culture Urgent
Date Specimen was Collected: 10/24/24
Time Specimen was Collected: 15:18
Abnormal Lab Results
10/24/24
11:13
RBC 3.43 L 10^6/uL
(4.20-5.40)
Hgb 10.8 L g/dL
(12.0-16.0)
Hct 32.7 L %
(37.0-47.0)
MCH 31.5 H pg
(27.0-31.0)
RDW 14.6 H %
(11.5-14.5)
MPV 12.6 H fL
(7.4-10.4)
Lymphocytes % 19.3 L %
(20.5-51.1)
Monocytes % 9.7 H %
(1.7-9.3)
Sodium 133 L mmol/L
(135-145)
BUN 24 H mg/dl
(7-17)
Glucose 119 H mg/dl
(70-99)
AST 58 H U/L
(14-36)
Alkaline Phosphatase 167 H U/L
(38-126)
10/24/24 11:13
10/24/24 11:13
Vital Signs
Initial and Last Documented VS:
Initial Vital Signs
Temp Pulse Resp BP Pulse Ox
97.7 F 66 16 166/83 98
10/24/24 09:15 10/24/24 09:15 10/24/24 09:15 10/24/24 09:15 10/24/24 09:15
Last Documented Vital Signs
Temp Pulse Resp BP Pulse Ox
97.7 F 74 16 169/76 95
10/24/24 09:15 10/24/24 14:46 10/24/24 14:46 10/24/24 14:46 10/24/24 14:46
MDM/Problems Addressed
MDM/Problems Addressed:
Unfortunately patient was identified to have a new pancreatic mass with innumerable liver mets. Will be admitted to the hospitalist service for further GI workup
*Critical Care Note
Total Time (30-74mins, 75-104mins- exclusive of procedures): Not Applicable
ED Attending Note
-
Portions of this chart may have been created with voice recognition software.� Occasional wrong word or��sound alike� substitutions may have occurred due to the inherent limitations of voice recognition software.
Discharge Plan
Departure
Patient Disposition: Admit
Date of Disposition: 10/24/24
Time of Disposition: 15:25
Admit to: Med/Surg
Presentation/result/management discussed w/ accepting MD/DO: Hospitalist
Discharge Problem:
Mass of pancreas
Prescriptions:
No Action
latanoprost 1 DROP drops
1 drp ophthalmic (eye) QPM
Rx Instructions:
each eye
multivitamin with folic acid [Tab-A-Adri] 1 TABLET tablet
1 tab PO DAILY
olopatadine 0.2 % Drops
1 drp OPHTHALMIC (EYE) DAILY PRN (Reason: itching)
[id number] [Glucosamine-Chondroitin 3X] 750-625-30 mg Tablet
1 tab PO BID
alprazolam 0.25 mg Tablet
0.25 mg PO DAILYPRN PRN (Reason: severe anxiety) 3 Days Qty: 3 0RF
oxybutynin chloride 5 mg Tablet
30 mg PO HS Qty: 30 0RF
guaifenesin 600 mg Tablet Extended Release 12hr
600 mg PO Q12 15 Days Qty: 30 0RF
lidocaine [Lidocan IV] 5 % adhesive patch,medicated
1 patch topical DAILY 30 Days Qty: 30 0RF
atorvastatin 10 mg Tablet
10 mg PO MoTuWeFrSa@1800 30 Days Qty: 22 0RF
Metamucil Fiber Singles 3.4 gram Powder In Packet
1 packet PO DAILY 30 Days Qty: 30 0RF
pantoprazole 40 mg Tablet,Delayed Release (Dr/Ec)
40 mg PO DAILY 30 Days Qty: 30 0RF
budesonide 0.25 mg/2 mL Suspension For Nebulization
0.25 mg inhalation R BID 30 Days Qty: 120 0RF
sodium chloride 1,000 mg Tablet,Soluble
1,000 mg PO BID 30 Days Qty: 60 0RF
acetaminophen 325 mg Tablet
650 mg PO Q6HPRN PRN (Reason: mild pain) 15 Days Qty: 90 0RF
tramadol 50 mg Tablet
25 mg PO Q6 PRN (Reason: moderate pain) 3 Days Qty: 6 0RF
cholecalciferol (vitamin D3) 50 mcg (2,000 unit) Tablet
50 mcg PO DAILY 30 Days Qty: 30 0RF
zinc sulfate 50 mg zinc (220 mg) Capsule
220 mg PO DAILY 30 Days Qty: 132 0RF
sertraline 25 mg Tablet
25 mg PO DAILY 30 Days Qty: 30 0RF
aspirin 325 mg Tablet
325 mg PO DAILY 26 Days Qty: 26 0RF
amlodipine 5 mg Tablet
5 mg PO DAILY Qty: 0 0RF
docusate sodium 100 mg Capsule
100 mg PO BID Qty: 20 0RF
budesonide-formoterol [Symbicort] 1 PUFF HFA aerosol inhaler
1 puff inhalation R BID 30 Days Qty: 1 0RF
budesonide 0.25 mg/2 mL suspension for nebulization
0.25 mg inhalation BID PRN (Reason: asthma, cough) 30 Days Qty: 120 0RF
Rx Instructions:
cpt code- J45.909
Referrals:
UNKNOWN - PT DOES,NOT KNOW [Family Provider] -
Interventions
Interventions:
*Risk Screen - Suicide Last Done: 10/24/24 09:15
*General Assessment Last Done: 10/24/24 11:26
*Neglect/Abuse Screening Last Done: 10/24/24 09:15
ED- Fall Risk Assessment Last Done: 10/24/24 11:26
BV-Aolmvq-Izmtdlatlu Assessment Last Done: 10/24/24 11:26
Discharge Date and Time
Print Language: BELARUSIAN
[2024-10-24 11:34] LABS: % Basophils 0.5 % (0-2); % Eosinophils 1.7 % (0-6); % Immature Granulocytes 0.2 % (0-0.5); % Lymphocytes 19.3 % (20.5-51.1); % Monocytes 9.7 % (1.7-9.3); % Neutrophils 68.6 % (42.2-75.2); Absolute Eosinophils 0.1 10^3/uL (0-0.7); Absolute Lymphocytes 1.2 10^3/uL (1.2-3.4); Absolute Monocytes 0.6 10^3/uL (0.1-0.6); Absolute Neutrophils 4.1 10^3/uL (1.4-6.5); Hematocrit 32.7 % (37.0-47.0); Hemoglobin 10.8 g/dL (12.0-16.0); Mean Corpuscular Hgb 31.5 pg (27.0-31.0); Mean Corpuscular Volume 95.3 fL (81.0-99.0); Mean Platelet Volume 12.6 fL (7.4-10.4); Nucleated Red Blood Cells % 0 %; Platelet Count 178 10^3/uL (130-400); Red Blood Cell Count 3.43 10^6/uL (4.20-5.40); Red Cell Dist. Width 14.6 % (11.5-14.5)
[2024-10-24 11:41] LABS: ALT (SGPT) 29 U/L (0-35); AST (SGOT) 58 U/L (14-36); Albumin 3.8 g/dl (3.5-5.0); Alkaline Phosphatase 167 U/L (38-126); Blood Urea Nitrogen 24 mg/dl (7-17); Carbon Dioxide 28 mmol/L (22-30); Chloride 101 mmol/L (98-107); Estimated Creatinine Clearance 50 ml/min; Glucose 119 mg/dl (70-99); Lipase 31 U/L (23-300); Potassium 4.2 mmol/L (3.5-5.1); Sodium 133 mmol/L (135-145); Total Bilirubin 0.6 mg/dl (0.2-1.3); Total Protein 6.6 g/dl (6.3-8.2); eGFR > 60.00
--- NOTE | 2024-10-24 15:40 | HPS.HSE ---
Family Physician
-
Family Physician: NOT KNOW UNKNOWN - PT DOES
Chief Complaint
-
abdominal pain
History of Present Illness
Ms. Rose Marie Johnson is a 84 yo woman with hx essential HTN, HLD, GERD, HFpEF, presents to the ER with upper abdominal pain x several days.
Patient states pain started last Monday and is in mid-epigastric region, worse with palpation. Radiates across upper abdomen. No nausea/vomiting/diarrhea. She states pain may improve with food.
No chest pain or shortness of breath. No new LE swelling or rash. No fevers/chills.
Medical History
Past Medical History
Past Medical History: Reports Other (Hypertension, glucoma, spinal stenosis, hyperlipidemia, osteoarthritis, mitral valve prolapse, GERD, venous insufficiency, urinary incontinence, asthma.)
Past Surgical History: Reports Other (No recent major surgery)
Social History
Tobacco: Non-smoker
Alcohol: None
Drug: None
Personal:
Living: With Family
Employment: Retired
Family History
Family History: CAD, Diabetes and Hypertension
Allergies / Home Medications
Allergies reflects when Allergies were last updated in [employer].
Home Medications with original date entered in [employer]
Allergy/Medication List:
Allergies
Allergy/AdvReac Type Severity Reaction Status Date / Time
Penicillins Allergy Unknown Verified 10/24/24 09:18
Home Medications
latanoprost 0.005 % eye drops 1 drp BOTH EYES QPM Eye Condition 05/19/24
multivitamin with folic acid 400 mcg tablet (Tab-A-Adri) 1 tab PO NOON Supplement 05/19/24
amlodipine 5 mg tablet 5 mg PO DAILY Blood pressure #0 tabs 06/06/24
pantoprazole 40 mg tablet,delayed release 40 mg PO DAILY Gastrointestinal issue 30 days #30 tabs 06/06/24
sertraline 25 mg tablet 25 mg PO DAILY Mental Health/Anxiety 30 days #30 tabs 06/06/24
aspirin 81 mg tablet,delayed release 81 mg PO DAILY 10/24/24
budesonide-formoterol HFA 160 mcg-4.5 mcg/actuation aerosol inhaler (Symbicort) 2 inh inhalation R BID 10/24/24
celecoxib 200 mg capsule (Celebrex) 200 mg PO DAILY 10/24/24
cholecalciferol (vitamin D3) 50 mcg (2,000 unit) tablet 50 mcg PO NOON Supplement 10/24/24
docusate sodium 100 mg capsule 100 mg PO HS Constipation 10/24/24
losartan 25 mg tablet 25 mg PO BID 10/24/24
mirabegron 25 mg tablet,extended release 24 hr (Myrbetriq) 25 mg PO HS 10/24/24
rosuvastatin 5 mg tablet (Crestor) 5 mg PO QPM 10/24/24
wheat dextrin 3 gram/3.5 gram oral powder 5.69 g PO DAILY 10/24/24
zinc sulfate 50 mg zinc (220 mg) capsule 220 mg PO NOON Supplement 10/24/24
Review of Systems
-
History Source: Patient
A 12 point ROS was completed and negative except as noted: Yes
Physical Exam
Vital Signs
Vital Signs
Temp Pulse Resp BP Pulse Ox
97.7 F 74 16 169/76 95
10/24/24 09:15 10/24/24 14:46 10/24/24 14:46 10/24/24 14:46 10/24/24 14:46
Physical Exam
General: No Apparent Distress
HEENT: PERRLA
Respiratory: Clear; No Wheezes
Cardiac: S1/S2 and Regular Rhythm
GI: Other (pinpoint discomfort mid abdomen, no rebound or gaurding)
Musculoskeletal: No Edema
Skin: Warm and Dry; No Rash
Neuro: AO x 3
Psych: Calm
Laboratory Results
-
10/24/24 11:13
10/24/24 11:13
Laboratory Results
Total Bilirubin 0.6 mg/dl (0.2-1.3) 10/24/24 11:13
AST 58 U/L (14-36) H 10/24/24 11:13
ALT 29 U/L (0-35) 10/24/24 11:13
Alkaline Phosphatase 167 U/L (38-126) H 10/24/24 11:13
Lipase 31 U/L (23-300) 10/24/24 11:13
Data Reviewed
-
Diagnostic Radiology: Report Reviewed by me
Lab Data: Labs Reviewed by me
Impression/Plan
-
Ms. Rose Marie Johnson is a 84 yo woman with hx essential HTN, HLD, GERD, HFpEF, presents to the ER with upper abdominal pain x several days.
Triage VS: T 97.7, P 66, RR 16, BP 166/83, SpO2 98%
LABS: WBC 6, Hg 108, PLT 178, Na 133, K+ 4.2, Cl 101, BUN 24, Cr 0.8, Glucose 119, T. Bili 0.6, AST 58, ALT 29, Alk Phos 167
Abdomen US:
IMPRESSION: No evidence of cholelithiasis, gallbladder wall thickening or enlargement of the common bile duct. Negative sonographic Quiroz's sign.
Findings suspicious for multiple scattered small hepatic masses, metastatic disease would be most likely differential diagnostic possibility. No findings to suggest intrahepatic biliary tract dilatation.
Questionable small pancreatic head mass.
MRI suggested for more complete evaluation
CT A/P:
IMPRESSION:
Findings suspicious for mass at the level of the junction of the body and tail of the pancreas measuring approximately 3 cm with some distal pancreatic atrophy. Some suspected prominent peripancreatic lymphadenopathy. Cannot exclude small more
proximal pancreatic cystic lesion. No findings to suggest biliary tract dilatation. MRI recommended for more complete evaluation.
Numerous scattered low-attenuation hepatic masses suspicious for malignancy/metastatic disease.
Soft tissues of the true pelvis markedly obscured by beam hardening artifact from bilateral hip arthroplasties.
Additional nonurgent findings, as detailed above.
Pancreatic Mass with CT evidence of hepatic masses suspicious for malignancy/metastatic disease
-admit
-MRI Abdomen w/without contrast and MRCP
-GI consult
Essential HTN
-MARKETING SALES SUPERVISOR Amlodipine, Losartan
HFpEF
GERD
-MARKETING SALES SUPERVISOR Protonix
HLD
-MARKETING SALES SUPERVISOR Statin
Depression
-MARKETING SALES SUPERVISOR Zoloft
DVT PPx SCD
FULL CODE
[2024-10-24 15:42] LABS: Urine Albumin Negative (Neg - Trace); Urine Bilirubin Negative (Negative); Urine Character Clear (Clear); Urine Color Yellow; Urine Glucose Negative (Negative); Urine Ketone Negative (Negative); Urine Leukocyte Negative (Negative); Urine Nitrite Negative (Negative); Urine Occult Blood Negative (Negative); Urine Specific Gravity 1.015 (<1.030); Urine Urobilinogen Negative (Neg - 1+)
--- NOTE | 2024-10-24 16:37 | CON.GI ---
Addendum entered and electronically signed by Alfredo Vance DO 10/24/24 19:12:
I saw and examined the patient.
The FRAMING MECHANIC's note was reviewed and I agree with the note.
Comment: Rose Marie Johnson is a 84 yo woman with past medical history of HTN, HLD, GERD, and HFpEF who presented to the ED with abdominal pain found to have a pancreatic mass within the body/tail along with prominent peripancreatic lymphadenopathy and
numerous scattered hepatic masses suspicious for malignancy/metastatic disease. Discussed with family and patient this AM regarding CT findings. LFTs wnl without any concern for biliary obstruction given location of distal body/tail mass. Needs
MRI/MRCP WWO contrast for staging purposes along with expedited EUS. Check tumor markers: AFP, CEA, and CA 19-9. Keep NPO for MRI/MRCP and for EUS w/ FNA tomorrow, 10/25/2024. Rest of care as outlined below.
GI will continue to follow. Please call with any questions or concerns.
Original Note:
Consultation
-
Date/Time Consultation Requested: 10/24/24 1630
Date/Time Consultation Performed: 10/24/24 1620
Requesting Provider: Jonelle Ramirez MD
Performing Provider: ERROL Sands, Su Vance DO
Reason for Consultation: abnormal imaging
Medical History
Chief Complaint / HPI
Chief Complaint: abdominal pain
History of Present Illness:
Pt is an 84yo with hx asthma, HFpEF, atypical GERD, HTN, s/p THR, spinal stenosis, osteoarthritis, MVP, venous insufficiency, incontinence, glaucoma with onset of epigastric abdominal pain since last week. Pain was better with food and tea and
worse with movement. Currently rates pain as 1/10. On admission noted with hbg 10.8 with bili 0.6, AST 58, ALT 29, alk phos 167 with lipase of 31. Imaging with US with concern for multiple scattered small hepatic mets no intrahepatic biliary tract
dilatation. CT with concern for mass at level of junction of body and tail of pancreas 3 cm with distal pancreatic atrophy with suspected prominent peripancreatic lymphadenopathy. small neuropsychiatrist proximal pancreatic cystic lesion not excluded. no
biliary dilatation. MRI recommended.
Pt admits to atypical GERD with mylanta and Tums use as needed. She also admits to some dark urine. She denies any recent wt loss, odynophagia, nausea, vomiting, diarrhea, constipation or rectal bleeding.
Past Medical History
Past Medical History: Asthma, CHF, GERD (Atypical ), HTN, Hypercholesterolemia and Other (spinal stenosis, osteoarthritis, MVP, venous insufficiency, incontinence, glaucoma )
Past Surgical History: Orthopedic (THR )
Social History
Tobacco: Non-Smoker
Alcohol: None
Drug: None
Personal:
Living: With Family
Employment: Retired
Family History
Family History: Other (no family hx GI issues, pancreatic or liver problems)
Allergies / Home Medications
Allergy/AdvReac Type Severity Reaction Status Date / Time
Penicillins Allergy Unknown Verified 10/24/24 09:18
�Medication �Instructions �Recorded
latanoprost 0.005 % eye drops 1 drp BOTH EYES QPM Eye Condition 05/19/24
multivitamin with folic acid 400 1 tab PO NOON Supplement 05/19/24
mcg tablet (Tab-A-Adri)
amlodipine 5 mg tablet 5 mg PO DAILY Blood pressure #0 06/06/24
tabs
pantoprazole 40 mg tablet,delayed 40 mg PO DAILY Gastrointestinal 06/06/24
release issue 30 days #30 tabs
sertraline 25 mg tablet 25 mg PO DAILY Mental 06/06/24
Health/Anxiety 30 days #30 tabs
aspirin 81 mg tablet,delayed 81 mg PO DAILY 10/24/24
release
budesonide-formoterol HFA 160 2 inh inhalation R BID 10/24/24
mcg-4.5 mcg/actuation aerosol
inhaler (Symbicort)
celecoxib 200 mg capsule (Celebrex) 200 mg PO DAILY 10/24/24
cholecalciferol (vitamin D3) 50 50 mcg PO NOON Supplement 10/24/24
mcg (2,000 unit) tablet
docusate sodium 100 mg capsule 100 mg PO HS Constipation 10/24/24
losartan 25 mg tablet 25 mg PO BID 10/24/24
mirabegron 25 mg tablet,extended 25 mg PO HS 10/24/24
release 24 hr (Myrbetriq)
rosuvastatin 5 mg tablet (Crestor) 5 mg PO QPM 10/24/24
wheat dextrin 3 gram/3.5 gram oral 5.69 g PO DAILY 10/24/24
powder
zinc sulfate 50 mg zinc (220 mg) 220 mg PO NOON Supplement 10/24/24
capsule
Review of Systems
-
History Source: Patient and Family
Constitutional: Reports No Symptoms
EENT: Reports No Symptoms
Respiratory: Reports No Symptoms
Abdomen/GI: Reports Abdominal Pain and Other (GERD)
: Reports Dark Urine
Musculoskeletal: Reports No Symptoms
Skin: Reports No Symptoms
Neurological: Reports Weakness
Endocrine: Reports No Symptoms
Hematologic/Lymphatic: Reports No Symptoms
Vital Signs
Temp Pulse Resp BP Pulse Ox
97.7 F 74 16 169/76 96
10/24/24 09:15 10/24/24 14:46 10/24/24 14:46 10/24/24 14:46 10/24/24 16:00
Physical Exam
Exam
General: Well Developed, Well Nourished and No Apparent Distress
HEENT: Normocephalic and Anicteric
Respiratory: Clear
Cardiac: Regular Rhythm
GI: Soft
Musculoskeletal: No Clubbing and No Cyanosis
Skin: Warm and Dry
Neuro: Awake, Alert and AO x 3
Psych: Calm
Results
WBC 6.0 10^3/uL (4.8-10.8) 10/24/24 11:13
Hgb 10.8 g/dL (12.0-16.0) L 10/24/24 11:13
Hct 32.7 % (37.0-47.0) L 10/24/24 11:13
MCV 95.3 fL (81.0-99.0) 10/24/24 11:13
Plt Count 178 10^3/uL (130-400) 10/24/24 11:13
Absolute Neuts (auto) 4.1 10^3/uL (1.4-6.5) 10/24/24 11:13
Sodium 133 mmol/L (135-145) L 10/24/24 11:13
Potassium 4.2 mmol/L (3.5-5.1) 10/24/24 11:13
Chloride 101 mmol/L (98-107) 10/24/24 11:13
Carbon Dioxide 28 mmol/L (22-30) 10/24/24 11:13
BUN 24 mg/dl (7-17) H 10/24/24 11:13
Creatinine 0.8 mg/dL (0.6-1.0) 10/24/24 11:13
Calcium 10.0 mg/dl (8.4-10.2) 10/24/24 11:13
Total Bilirubin 0.6 mg/dl (0.2-1.3) 10/24/24 11:13
AST 58 U/L (14-36) H 10/24/24 11:13
ALT 29 U/L (0-35) 10/24/24 11:13
Alkaline Phosphatase 167 U/L (38-126) H 10/24/24 11:13
Lipase 31 U/L (23-300) 10/24/24 11:13
Diagnostic Image Results:
10/24/24 CT Abd/Pel (IV only)-[facility] only
Findings suspicious for mass at the level of the junction of the body and tail of the pancreas measuring approximately 3 cm with some distal pancreatic atrophy. Some suspected prominent peripancreatic lymphadenopathy. Cannot exclude small more
proximal pancreatic cystic lesion. No findings to suggest biliary tract dilatation. MRI recommended for more complete evaluation.
Numerous scattered low-attenuation hepatic masses suspicious for malignancy/metastatic disease.
Soft tissues of the true pelvis markedly obscured by beam hardening artifact from bilateral hip arthroplasties.
Additional nonurgent findings, as detailed above.
10/24/24 US abdomen
No evidence of cholelithiasis, gallbladder wall thickening or enlargement of the common bile duct. Negative sonographic Quiroz's sign.
Findings suspicious for multiple scattered small hepatic masses, metastatic disease would be most likely differential diagnostic possibility. No findings to suggest intrahepatic biliary tract dilatation.
Questionable small pancreatic head mass.
MRI suggested for more complete evaluation
Prior GI Procedures:
EGD:
Colonoscopy: 2015 - Two 3 to 7 mm polyps in the rectum. Biopsied.
- Diverticulosis in the sigmoid colon and in the
descending colon.
bx HP polyps
colonoscopy 2007
- Internal, non bleeding, small hemorrhoids were found.
- The colon is normal.
- The terminal ileum is normal.
- The examination was otherwise normal.
Assessment / Plan
-
Pt is an 84yo with hx asthma, HFpEF, atypical GERD, HTN, s/p THR, spinal stenosis, osteoarthritis, MVP, venous insufficiency, incontinence, glaucoma with onset of epigastric abdominal pain since last week. Pain was better with food and tea and
worse with movement. Currently rates pain as 1/10. On admission noted with hbg 10.8 with bili 0.6, AST 58, ALT 29, alk phos 167 with lipase of 31. Imaging with US with concern for multiple scattered small hepatic mets no intrahepatic biliary tract
dilatation. CT with concern for mass at level of junction of body and tail of pancreas 3 cm with distal pancreatic atrophy with suspected prominent peripancreatic lymphadenopathy. small neuropsychiatrist proximal pancreatic cystic lesion not excluded. no
biliary dilatation. MRI recommended.
-epigastric abdominal pain
-imaging concern for mass at level of junction of body and tail of pancreas with also concern for hepatic mets
other med problems:
-asthma
-HFpEF
-atypical GERD
-HTN
-s/p THR
-spinal stenosis
-MVP
-venous insufficiency
-incontinence
-glaucoma
PLAN:etiology of abdominal pain with concern for pancreatic mass with possible mets
for MRI for further evaluation
pending results EUS with biopsy possible tomorrow vs outpatient
NPO for MRI and AM
reviewed with family and all questions answered
cont PPI with hx GERD
will follow
-
-
Thank you for consultation and allowing me to participate in the patient's care. Please call the medical office receptionist GI physician during the after hours with any questions or concerns.
--- NOTE | 2024-10-24 18:29 | PTCARENOTE ---
pt brought to unit this evening. pt npo for abd MRI. scope scheduled for tomorrow. states does not take crestor on or monday. pt aaox3, VSS.
[2024-10-24] MEDS: SYMBICORT 160/4.5 MCG INHALER 2 PUFF INH (20:11)
[2024-10-24] MEDS: XALATAN OPHTHALMIC SOLUTION 1 DROP BOTH EYES (22:43)
[2024-10-24] MEDS: COZAAR 25 MG PO (22:48)
[2024-10-24] MEDS: COLACE 100 MG PO (22:48)
[2024-10-24] MEDS: MYRBETRIQ EXTENDED RELEASE 25 MG PO (22:57)
[2024-10-25] VITALS (9 sets, daily range): BP systolic 12–155; BP diastolic 60–98; BMI 23.9
[2024-10-25] MEDS: SYMBICORT 160/4.5 MCG INHALER 2 PUFF INH ×2 (07:54→21:33)
[2024-10-25] MEDS: ZOLOFT 25 MG PO (08:46)
[2024-10-25] MEDS: NORVASC 5 MG PO (08:46)
[2024-10-25] MEDS: COZAAR 25 MG PO ×2 (08:46→21:54)
[2024-10-25] MEDS: PROTONIX 40 MG PO (08:47)
[2024-10-25] MEDS: ASPIR LOW (ENTERIC COATED) PO (08:49)
--- NOTE | 2024-10-25 08:53 | W.PN.HOSP.TC ---
Today's Communication/Plan
-
For EUS w/ biopsy today
Assessment / Plan
Assessment / Plan
HPI: 84 yo woman with hx essential HTN, HLD, GERD, HFpEF, presents to the ER with upper abdominal pain x several days.
Pancreatic carcinoma with metastases to the liver
-Appreciate GI input, plan for EUS with biopsy today
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
Right lower extremity edema
-Check right lower extremity Dopplers
Mild vaginal spotting versus hemorrhoidal bleeding
-Patient reports toilet paper is pink with wiping
-Urinalysis is negative
-Monitor
Essential HTN
-Continue amlodipine, Losartan
Chronic HFpEF
-Monitor fluid status
GERD
-Continue Protonix
HLD
-Continue statin
Depression
-Continue Zoloft
DVT prophylaxis�subcu Lovenox
Full code
Total time spent to see the patient on the floor, examine the patient, review data and lab results, discuss treatment plan with patient, nursing staff around 50 minutes.
Physical Exam
General: No acute distress
HEENT: Normocephalic, Atraumatic, EOMI, MMM
Respiratory: Clear to Auscultation bilaterally
Cardiac: Normal S1/S2, Regular Rate and Rhythm
GI: Soft, tenderness at the epigastrium, Nondistended, Normal Bowel Sounds
Extremities: No Clubbing, Cyanosis
Right lower extremity edema noted
Neuro: Nonfocal/Grossly Intact
Psych: Calm, Cooperative
Derm: No Visible lesions
Anticipated Discharge: 24 - 48 hours
Subjective/Interval History
-
Date of Service: October 25, 2024
Patient reports abdominal discomfort, same as admission. Reports pink blood with wiping. Denies nausea, denies vomiting. No fever. No chest pain, no shortness of breath.
Objective Data
-
Labs:
Laboratory Results
10/25/24
08:03
WBC Pending
Hgb Pending
Hct Pending
Plt Count Pending
Sodium Pending
Potassium Pending
Chloride Pending
Carbon Dioxide Pending
BUN Pending
Creatinine Pending
Glucose Pending
Calcium Pending
Total Bilirubin Pending
AST Pending
ALT Pending
Alkaline Phosphatase Pending
Vital Signs:
Vital Signs
Temp Pulse Resp BP Pulse Ox
98.8 F 75 16 149/70 94
10/25/24 07:32 10/25/24 08:46 10/25/24 07:57 10/25/24 08:46 10/25/24 07:57
I&O
10/24/24 10/25/24 10/26/24
06:59 06:59 06:59
Intake Total 1200 / 1200
Balance 1200 / 1200
[2024-10-25 09:17] LABS: Hematocrit 36.4 % (37.0-47.0); Hemoglobin 12.1 g/dL (12.0-16.0); Mean Corp Hgb Conc. 33.2 g/dL (33.0-37.0); Mean Corpuscular Hgb 31.9 pg (27.0-31.0); Red Blood Cell Count 3.79 10^6/uL (4.20-5.40); Red Cell Dist. Width 14.9 % (11.5-14.5); White Blood Cell Count 5.3 10^3/uL (4.8-10.8)
[2024-10-25 09:18] LABS: ALT (SGPT) 30 U/L (0-35); AST (SGOT) 62 U/L (14-36); Alkaline Phosphatase 135 U/L (38-126); Blood Urea Nitrogen 16 mg/dl (7-17); Calcium 10.2 mg/dl (8.4-10.2); Carbon Dioxide 28 mmol/L (22-30); Chloride 98 mmol/L (98-107); Estimated Creatinine Clearance 50 ml/min; Glucose 100 mg/dl (70-99); Potassium 4.1 mmol/L (3.5-5.1); Sodium 135 mmol/L (135-145); Total Bilirubin 0.9 mg/dl (0.2-1.3); Total Protein 6.9 g/dl (6.3-8.2); eGFR > 60.00
--- NOTE | 2024-10-25 10:57 | CM ---
CM following re: discharge planning.
Reviewed pt's chart, met with pt.
Pt is an 84 year old female, admitted with primary dx of abdominal pain.
Pt stated she and her moved to Health system apartment 3 months ago and adjusting to a new reality. Pt stated she sill misses her own house where she, her and children used to live. Pt reports she ambulates with a walker at
baseline, has a cane, transport chair, hip kit, raised toilet seat, grab bars. Pt reports she known to [facility] and was at [facility] x2: 2019 and 2023. Pt expressed her desire to return back to her new living arrangement at [facility] with family
support. Pt reports she has 2 supportive children.
PT and OT will evaluate the pt to determine a level of care at discharge.
PCP: [facility] Terrazas
Pharmacy: [facility]
D/C plan: per pt's desire, return back to her independent apartment at [facility] with and family support.
CM will follow with discharge plan updates as hospitalization progresses
[2024-10-25 11:10] LABS: Mean Platelet Volume 13.5 fL (7.4-10.4); Platelet Count 145 10^3/uL (130-400)
[2024-10-25 11:59] LABS: AFP Male/Tumor Marker 2.91 ng/ml
--- NOTE | 2024-10-25 12:33 | VNURNOTE ---
[facility] liaison met with patient at bedside to explain services. She is declining home PT, OT at this time. She is unsure if she'd like to receive [facility] nurses upon DC, 'I have a nurse at [facility].' She'd like to think about it and speak w/her family
about it first. No referral placed. Will follow up.
--- NOTE | 2024-10-25 13:21 | W.PN.UPDATE ---
Update Note
Progress Note Update
reviewed MRI with patient plan for EUS with biopsy today
[2024-10-25 14:18] LABS: CEA 5.53 ng/ml
--- NOTE | 2024-10-25 18:11 | SUR.PHASEI ---
patient awake and alert in pacu - vss. dentures in, glasses on. Spoke with Dr Tomas at bedside. Tearful at times. Anxious for discharge to be home with family for the holidays.
[2024-10-25] MEDS: LOVENOX 40 MG SC (18:41)
[2024-10-25] MEDS: CRESTOR 5 MG PO (18:41)
[2024-10-25] MEDS: MYRBETRIQ EXTENDED RELEASE 25 MG PO (21:53)
[2024-10-25] MEDS: COLACE 100 MG PO (21:53)
[2024-10-25] MEDS: XALATAN OPHTHALMIC SOLUTION 1 DROP BOTH EYES (21:54)
[2024-10-25] MEDS: TYLENOL 650 MG PO (22:02)
[2024-10-26 06:00] VITALS: BMI 24.1
[2024-10-26] MEDS: SYMBICORT 160/4.5 MCG INHALER 2 PUFF INH (08:18)
--- NOTE | 2024-10-26 08:37 | W.PN.GI.CBS2 ---
Today's Communication / Plan
-
Please see assessment and plan for details.
Assessment / Plan
-
1. Pancreatic mass: With multiple liver lesions, status post EUS with FNA of primary mass and liver lesions, final pathology pending though consistent with metastatic malignancy. No signs of pancreatitis overnight status post FNA. At this point
will advance diet, and if tolerates is okay to DC from GI standpoint, to follow-up on pathology results.
Subjective
Subjective
Date of Service: October 26, 2024
Patient feeling well, no significant abdominal pain overnight, no nausea or vomiting, tolerated clears without difficulty.
Objective
Data Reviewed
Laboratory Data:
Laboratory Results
10/25/24 08:03
10/25/24 08:03
Laboratory Results
Magnesium 2.0 mg/dl (1.6-2.3) 10/25/24 08:03
Total Bilirubin 0.9 mg/dl (0.2-1.3) 10/25/24 08:03
AST 62 U/L (14-36) H 10/25/24 08:03
ALT 30 U/L (0-35) 10/25/24 08:03
Alkaline Phosphatase 135 U/L (38-126) H 10/25/24 08:03
Lipase 31 U/L (23-300) 10/24/24 11:13
Vital Signs and I&O:
Vital Signs
Temp Pulse Resp BP Pulse Ox
98.9 F 82 16 141/60 97
10/25/24 23:04 10/26/24 08:20 10/26/24 08:20 10/25/24 23:04 10/26/24 08:20
I&O
10/25/24 10/26/24 10/27/24
06:59 06:59 06:59
Intake Total 1200 / 1200 840 / 840
Balance 1200 / 1200 840 / 840
Physical Exam
Physical Exam
General: NAD
Abdomen: normal bowel sounds, soft, no tenderness, no masses or bruits, no ascites
--- NOTE | 2024-10-26 08:48 | W.PN.HOSP.TC ---
Today's Communication/Plan
-
Stable for discharge today
Assessment / Plan
Assessment / Plan
HPI: 84 yo woman with hx essential HTN, HLD, GERD, HFpEF, presents to the ER with upper abdominal pain x several days.
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
-Appreciate GI input, status post EUS with biopsy 10/25
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
-Medically stable for discharge today, follow-up with oncology in the office for biopsy results and treatment recommendation
Right lower extremity edema
-Dopplers negative for DVT
Mild vaginal spotting versus hemorrhoidal bleeding
-Patient reports toilet paper is pink with wiping
-Urinalysis is negative
-Resolved
Essential HTN
-Continue amlodipine, Losartan
Chronic HFpEF
-Monitor fluid status
GERD
-Continue Protonix
HLD
-Continue statin
Depression
-Continue Zoloft
DVT prophylaxis�subcu Lovenox
Full code
Updated son at bedside 10/26
Physical Exam
General: No acute distress
HEENT: Normocephalic, Atraumatic, EOMI, MMM
Respiratory: Clear to Auscultation bilaterally
Cardiac: Normal S1/S2, Regular Rate and Rhythm
GI: Soft, tenderness at the epigastrium, Nondistended, Normal Bowel Sounds
Extremities: No Clubbing, Cyanosis
Right lower extremity edema noted
Neuro: Nonfocal/Grossly Intact
Psych: Calm, Cooperative
Derm: No Visible lesions
Anticipated Discharge: Today
Subjective/Interval History
-
Date of Service: October 26, 2024
Patient reports abdominal discomfort. No nausea, no vomiting. No fever. No chest pain, no shortness of breath. She is eager for discharge today.
Objective Data
-
Vital Signs:
Vital Signs
Temp Pulse Resp BP Pulse Ox
98.9 F 82 16 141/60 97
10/25/24 23:04 10/26/24 08:20 10/26/24 08:20 10/25/24 23:04 10/26/24 08:20
I&O
10/25/24 10/26/24 10/27/24
06:59 06:59 06:59
Intake Total 1200 / 1200 840 / 840
Balance 1200 / 1200 840 / 840
[2024-10-26] MEDS: ASPIR LOW (ENTERIC COATED) 81 MG PO (09:03)
[2024-10-26] MEDS: COZAAR 25 MG PO (09:04)
[2024-10-26] MEDS: ZOLOFT 25 MG PO (09:04)
[2024-10-26] MEDS: PROTONIX 40 MG PO (09:04)
[2024-10-26] MEDS: NORVASC 5 MG PO (09:04)
--- NOTE | 2024-10-26 10:17 | W.PN.UPDATE ---
Update Note
Progress Note Update
I spoke with Dr. Merino from oncology. Will review with patient and family for follow up needed to review for biopsy and plan. Updated Dr. Andersen.
--- NOTE | 2024-10-26 11:24 | W.DCSUMMARY ---
Discharge Summary
Discharge Data
Date of Admission: 10/24/24
Date of Discharge: 10/26/24
-
Pending Results: No
Hospital Course
Discharge diagnosis:
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
Multiple cysts in the pancreatic head and body
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
Right lower extremity edema
Mild vaginal spotting versus hemorrhoidal bleeding
Essential hypertension
Chronic heart failure with a preserved ejection fraction
Gastroesophageal reflux disease
Hyperlipidemia
Depression
Consults: GI
Procedures:
EUS biopsy 10/25/2024
Abdominal MRI:
1. 4.0 cm PANCREATIC CARCINOMA in the body of the pancreas.
2. EXTENSIVE MULTIFOCAL HEPATIC METASTATIC DISEASE.
3. Metastatic upper abdominal lymphadenopathy.
4. 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
5. Multiple cysts in the pancreatic head and body.
6. Mild to moderate cardiomegaly.
7. 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
Hospital course:
84-year-old female with a past medical history of CHF, HTN, GERD, hyperlipidemia, and depression presented with abdominal pain, and was found to have a new pancreatic mass. Patient had an abdominal MRI which shows a 4.0 cm pancreatic carcinoma in
the body of the pancreas, extensive multifocal hepatic metastatic disease, and upper abdominal lymphadenopathy. Patient was seen in conjunction with GI, and underwent EUS biopsy of her pancreatic mass on 10/25/2024. She did well postprocedure.
She tolerated a diet. She is medically stable and cleared by GI for discharge. She needs to follow-up with oncology in the office for biopsy results, and treatment plan.
Disposition: Home with home care
Discharge planning: Required 42-minute
Discharge Plan
-
Patient Disposition: Home (Routine Discharge)
Discharge Diagnosis/Procedures: Probable metastatic pancreatic cancer, biopsy pending
Condition: Fair
Diet: Low Fat and Low Cholesterol
Activity: With assistance
Driving Restrictions: As prior to admission
Activity Restrictions/Additional Instructions:
You can take [id number] acetaminophen/Tylenol 650 mg every 4 hours as needed for mild pain.
You can take tramadol 1 tablet for moderate pain, 2 tablets for severe pain.
Tramadol can cause constipation, please take an [id number] laxative as needed.
Please follow-up with oncology in the office for biopsy results and treatment recommendations.
Also follow-up with your primary care doctor in 1 week.
Referrals:
Luis Merino, DO [Active] - in one to two weeks
UNKNOWN - PT DOES,NOT KNOW [Family Provider] -
Prescriptions:
New
tramadol 25 mg tablet
25 mg PO TID PRN (Reason: Pain) Qty: 60 0RF
Rx Instructions:
May take 1 tab for moderate pain, 2 tabs for severe pain
ondansetron 4 mg tablet,disintegrating
4 mg PO Q6HPRN PRN (Reason: nausea and vomiting) Qty: 20 0RF
Continued
latanoprost 1 DROP drops
1 drp BOTH EYES QPM
multivitamin with folic acid [Tab-A-Adri] 1 TABLET tablet
1 tab PO NOON
celecoxib [Celebrex] 200 mg Capsule
200 mg PO DAILY
aspirin 81 mg Tablet,Delayed Release (Dr/Ec)
81 mg PO DAILY
losartan 25 mg Tablet
25 mg PO BID
rosuvastatin [Crestor] 5 mg Tablet
5 mg PO QPM
wheat dextrin 3 gram/3.5 gram Powder
5.69 g PO DAILY
budesonide-formoterol [Symbicort] 160-4.5 mcg/actuation Hfa Aerosol Inhaler
2 inh INHALATION R BID
mirabegron [Myrbetriq] 25 mg Tablet Extended Release 24 Hr
25 mg PO HS
docusate sodium 100 mg capsule
100 mg PO HS
zinc sulfate 50 mg zinc (220 mg) capsule
220 mg PO NOON
cholecalciferol (vitamin D3) 50 mcg (2,000 unit) tablet
50 mcg PO NOON
pantoprazole 40 mg Tablet,Delayed Release (Dr/Ec)
40 mg PO DAILY 30 Days Qty: 30 0RF
sertraline 25 mg Tablet
25 mg PO DAILY 30 Days Qty: 30 0RF
amlodipine 5 mg Tablet
5 mg PO DAILY Qty: 0 0RF
Discharge Orders:
Discharge Patient (As Directed); Ordered 10/26/24
Ordered By: Flavio Andersen
Discharge Date and Time
Discharge Date/Time: 10/26/24 12:28
Print Language: LAO
--- NOTE | 2024-10-26 12:11 | CM ---
Patient seen at bedside. Patient son for transport home. IMM reviewed and signed form placed on chart. Patient for VN, reviewed with patient son and update to patient. [facility]. CM will continue to follow for discharge planning needs.
Plan; returning to independent apartment at [place] with [facility]N referral
[2024-10-28 09:27] LABS: CA 19-9 7738 U/mL (<=35)
== END 2024-10-26 12:28 | disposition home or self-care (01) | DRG 436 ==
LOC: 2 NORTH 16:16
PROVIDERS: Internal Medicine Gastroenterology; Physician Assistant; Student in an Organized Health Care Education/Training Program; ADMITTING PHYSICIAN Student in an Organized Health Care Education/Training Program; ATTENDING PHYSICIAN Family Medicine; CONSULT PHYSICIAN Student in an Organized Health Care Education/Training Program; EMERGENCY PHYSICIAN Student in an Organized Health Care Education/Training Program
PROC: 0FBG8ZX Excision of Pancreas, Via Natural or Artificial Opening Endoscopic, Diagnostic (ICD-10-PCS; 2024-10-24)
DX: C25.1 Malignant neoplasm of body of pancreas (principal); C78.7 Secondary malignant neoplasm of liver and intrahepatic bile duct; I50.32 Chronic diastolic (congestive) heart failure; I11.0 Hypertensive heart disease with heart failure; K21.9 Gastro-esophageal reflux disease without esophagitis; E78.00 Pure hypercholesterolemia, unspecified; F32.A Depression, unspecified; D73.5 Infarction of spleen; M47.819 Spondylosis without myelopathy or radiculopathy, site unspecified
CPT/HCPCS: 88172; 88173; 88305; 36415; 74177; 74183; 76700; 80048; 80053; 81003; 82105; 82378; 83690; 83735; 85025; 85027; 86301; 87070; 87147; 88177; 88341; 88342; 93971; 94640; 97161; 97165; 99285; A9575; Q9967

== ENCOUNTER → 2024-11-12 10:25 | Outpatient (REF) | payer MEDICARE, OTHER, SELFPAY ==
[2024-11-12 11:50] LABS: % Basophils 1.3 % (0-2); % Eosinophils 4.9 % (0-6); % Immature Granulocytes 0.3 % (0-0.5); % Lymphocytes 32.2 % (20.5-51.1); % Monocytes 9.9 % (1.7-9.3); % Neutrophils 51.4 % (42.2-75.2); Absolute Basophils 0.1 10^3/uL (0-0.2); Absolute Eosinophils 0.3 10^3/uL (0-0.7); Absolute Lymphocytes 1.9 10^3/uL (1.2-3.4); Absolute Monocytes 0.6 10^3/uL (0.1-0.6); Absolute Neutrophils 3.1 10^3/uL (1.4-6.5); Hematocrit 34.2 % (37.0-47.0); Mean Corp Hgb Conc. 32.2 g/dL (33.0-37.0); Mean Corpuscular Hgb 31.6 pg (27.0-31.0); Mean Corpuscular Volume 98.3 fL (81.0-99.0); Mean Platelet Volume 13.7 fL (7.4-10.4); Nucleated Red Blood Cells % 0 %; Platelet Count 186 10^3/uL (130-400); Red Blood Cell Count 3.48 10^6/uL (4.20-5.40)
[2024-11-12 12:01] LABS: ALT (SGPT) 32 U/L (0-35); AST (SGOT) 59 U/L (14-36); Alkaline Phosphatase 234 U/L (38-126); Blood Urea Nitrogen 30 mg/dl (7-17); Calcium 9.9 mg/dl (8.4-10.2); Carbon Dioxide 24 mmol/L (22-30); Chloride 101 mmol/L (98-107); Glucose 99 mg/dl (70-99); HDL Cholesterol 76 mg/dl; Iron 78 ug/dl (37-170); LDL Cholesterol, Calculated 70 mg/dl; Potassium 4.8 mmol/L (3.5-5.1); Sodium 135 mmol/L (135-145); Total Bilirubin 0.5 mg/dl (0.2-1.3); Total Cholesterol 161 mg/dl (50-199); Total Protein 6.9 g/dl (6.3-8.2); Triglyceride 75 mg/dl (10-149); Very Low Density Lipoprotein 15 mg/dl (0-30); eGFR > 60.00
[2024-11-12 12:33] LABS: TSH Reflex To Free T4 6.36 uIU/ml (0.47-4.68)
[2024-11-12 12:37] LABS: Ferritin 16.8 ng/ml (11.1-264.0)
[2024-11-12 13:01] LABS: Free T4 1.25 ng/dl (0.78-2.19)
[2024-11-14 17:57] LABS: Erythropoietin (EPO) 8 mU/mL (4-27)
== END ==
LOC: OLABWIL 10:25
PROVIDERS: ATTENDING PHYSICIAN Family Medicine
DX: I10 Essential (primary) hypertension (principal); R79.9 Abnormal finding of blood chemistry, unspecified; Z01.89 Encounter for other specified special examinations; Z79.899 Other long term (current) drug therapy; D64.9 Anemia, unspecified
CPT/HCPCS: 36415; 80053; 80061; 82668; 82728; 83540; 84439; 84443; 85025